=== PATIENT | female | born 1935 | race Caucasian/White ===

== ENCOUNTER → 2016-07-28 | Outpatient (REF) | payer MEDICARE ==
[2016-07-28 18:51] LABS: BASO # 0.1 K/mm3 (0.0-0.2); EOS # 0.2 K/mm3 (0.0-0.50); EOS % 3.1 % (0.0-3.0); LARGE UNSTAINED CELL # 0.2 K/mm3 (0.0-0.4); LARGE UNSTAINED CELL % 2.5 % (0.0-4.0); LYMPH # 1.5 K/mm3 (1.5-4.5); LYMPH % 23.8 % (24.0-44.0); MEAN CORPUSCULAR HEMOGLOBIN 34.2 pg (27.0-33.0); MEAN CORPUSCULAR HGB CONC 32.8 g/dl (32.0-36.5); MEAN CORPUSCULAR VOLUME 104.5 fl (80.0-96.0); MONO # 0.4 K/mm3 (0.0-0.8); NEUTROPHILS # 3.9 K/mm3 (1.8-7.7); NEUTROPHILS % 62.6 % (36.0-66.0); PLATELET COUNT, AUTOMATED 198 k/mm3 (150-450); WHITE BLOOD COUNT 6.3 K/mm3 (4.0-10.0)
[2016-07-28 19:14] LABS: ALBUMIN 3.5 GM/DL (3.2-5.2); ALBUMIN/GLOBULIN RATIO 1.06 (1.00-1.93); ALKALINE PHOSPHATASE 75 U/L (45-117); ALT/SGPT 15 U/L (12-78); ANION GAP 7 MEQ/L (8-16); AST/SGOT 14 U/L (15-37); BLOOD UREA NITROGEN 14 MG/DL (7-18); CALCIUM LEVEL 8.6 MG/DL (8.8-10.2); CARBON DIOXIDE LEVEL 29 MEQ/L (21-32); CHLORIDE LEVEL 104 MEQ/L (98-107); CHOLESTEROL LEVEL 234 MG/DL (<200); CREATININE FOR GFR 0.82 MG/DL (0.55-1.02); FREE T4 1.11 NG/DL (0.76-1.46); GLOMERULAR FILTRATION RATE > 60.0 (>32); GLUCOSE, FASTING 111 MG/DL (83-110); SODIUM LEVEL 140 MEQ/L (136-145); TOTAL PROTEIN 6.8 GM/DL (6.4-8.2); TRIGLYCERIDES LEVEL 180 MG/DL (<150)
== END ==
LOC: M SFHCCAPE 09:28
PROVIDERS: ATTEND Registered Nurse
DX: E78.5 Hyperlipidemia, unspecified (principal); E11.9 Type 2 diabetes mellitus without complications

== ENCOUNTER 2016-10-17 14:54 | Emergency (ER) | payer MEDICARE ==
[~2016-10-17] VITALS: Ht 154.9 cm; Wt 57.7 kg
[2016-10-17] MEDS ORDERED: VICO5TAB16 PO (15:24)
[2016-10-17] MEDS ORDERED: LOVE1INJ2 SC (15:24)
[2016-10-17] MEDS ORDERED: FOLB1TAB PO (15:24)
[2016-10-17] MEDS ORDERED: LATA5OPD OD (15:24)
[2016-10-17] MEDS ORDERED: blood pressure (15:24)
--- NOTE | 2016-10-17 19:50 | REPUSA ---
CLINICAL HISTORY: Trauma. TECHNIQUE: Multiple axial CT images were obtained through the brain without IV contrast material. COMMENTS: There is normal configuration of sella turcica. There are no intra or extra-axial collections. There is no mass effect or midline shift. There is no evidence of hematoma formation. No hydrocephalus is p resent. The ventricles are symmetrical. No abnormal calcifications are present. There is diffuse age-appropriate cerebellar and cerebral atrophy with proportionally dilated ventricl es and cortical sulci. There are bilateral periventricular and subcortical white matter hypolucencies compatible with chroni c microvascular disease. Otherwise, no significant focal abnormalities are seen either in the posterior fossa or supratentoria l compartment. IMPRESSION: 1. Age-appropriate cerebellar and cerebral atrophy. 2. Chronic microvascular disease. 3. No evidence of acute intracranial pathology. Thank you for your kind referral of this patient.
[2016-10-17 19:59] VITALS: BP 165/81
[2016-10-17] MEDS ORDERED: BACT800T5 PO (19:59)
[2016-10-17] MEDS ORDERED: BACTRIM 160MG/800MG DS TAB PO ONE (20:00)
== END 2016-10-17 20:16 | disposition home or self-care (01) ==
LOC: M ED 14:54
DX: N39.0 Urinary tract infection, site not specified (principal); F10.10 Alcohol abuse, uncomplicated; Z87.891 Personal history of nicotine dependence; Z79.899 Other long term (current) drug therapy

== ENCOUNTER → 2016-11-24 | Outpatient (REF) | payer MEDICARE ==
[~2016-11-24] MED LIST: BACT800T5 PO; FOLB1TAB PO; LATA5OPD OD; LOVE1INJ2 SC; VICO5TAB16 PO; blood pressure
== END ==
LOC: M SFHCCAPE 11:54
PROVIDERS: ATTEND Physician Assistant
DX: R35.0 Frequency of micturition (principal)
CPT/HCPCS: 81002; 87086; G0463

== ENCOUNTER → 2016-12-03 | Outpatient (REF) | payer MEDICARE | LOC: M SFHCCAPE 13:24 | PROVIDERS: ATTEND Physician Assistant | DX: R35.0 Frequency of micturition (principal) ==

== ENCOUNTER → 2016-12-10 | Outpatient (REF) | payer MEDICARE | LOC: M SFHCCAPE 09:29 | PROVIDERS: ATTEND Physician Assistant | DX: R39.89 Other symptoms and signs involving the genitourinary system (principal) ==

== ENCOUNTER → 2017-03-26 | Outpatient (REF) | payer MEDICARE ==
[2017-03-26 20:32] LABS: BASO # 0.1 10^3/uL (0.0-0.2); BASO % 1.9 % (0.0-1.0); EOS # 0.2 10^3/uL (0.0-0.50); EOS % 4.4 % (0.0-3.0); HEMATOCRIT 38.1 % (36.0-47.0); HEMOGLOBIN 12.6 g/dl (12.0-16.0); IMMATURE GRANULOCYTE % 0.2 % (0-0); LYMPH % 42.5 % (24.0-44.0); MEAN CORPUSCULAR HEMOGLOBIN 32.8 pg (27.0-33.0); MEAN CORPUSCULAR HGB CONC 33.1 g/dl (32.0-36.5); MEAN CORPUSCULAR VOLUME 99.2 fl (80.0-96.0); MONO # 0.4 10^3/uL (0.0-0.8); MONO % 8.8 % (0.0-5.0); NEUTROPHILS % 42.2 % (36.0-66.0); PLATELET COUNT, AUTOMATED 211 10^3/uL (150-450); RED BLOOD COUNT 3.84 10^6/uL (4.00-5.40); RED CELL DISTRIBUTION WIDTH 12.3 % (11.5-14.5); WHITE BLOOD COUNT 4.8 10^3/uL (4.0-10.0)
[2017-03-26 21:15] LABS: ALBUMIN 3.9 GM/DL (3.2-5.2); ALBUMIN/GLOBULIN RATIO 1.08 (1.00-1.93); ALKALINE PHOSPHATASE 92 U/L (45-117); ALT/SGPT 17 U/L (12-78); ANION GAP 6 MEQ/L (8-16); AST/SGOT 17 U/L (7-37); BILIRUBIN,TOTAL 0.3 MG/DL (0.2-1.0); BLOOD UREA NITROGEN 15 MG/DL (7-18); CALCIUM LEVEL 8.5 MG/DL (8.8-10.2); CARBON DIOXIDE LEVEL 30 MEQ/L (21-32); CHLORIDE LEVEL 106 MEQ/L (98-107); CHOLESTEROL LEVEL 271 MG/DL (<200); CHOLESTEROL RISK RATIO 4.754 (<5); CREATININE FOR GFR 0.82 MG/DL (0.55-1.02); GLOMERULAR FILTRATION RATE > 60.0 (>32); GLUCOSE, FASTING 107 MG/DL (83-110); HDL CHOLESTEROL 57 MG/DL (>40); NON-HDL-C 214 MG/DL; POTASSIUM SERUM 3.7 MEQ/L (3.5-5.1); SODIUM LEVEL 142 MEQ/L (136-145); TOTAL PROTEIN 7.5 GM/DL (6.4-8.2); TRIGLYCERIDES LEVEL 583 MG/DL (<150)
[2017-03-26 21:16] LABS: VITAMIN B12 LEVEL 896 PG/ML (247-911)
[2017-03-26 21:17] LABS: CREATININE, URINE 44.2 MG/DL; MAU/CREAT RATIO 72.3 MCG/MG (0.0-30.0)
[2017-03-26 21:47] LABS: ESTIMATED AVERAGE GLUCOSE 120 MG/DL (60-110); HEMOGLOBIN A1c 5.8 %
== END ==
LOC: M SFHCCAPE 09:31
DX: E78.5 Hyperlipidemia, unspecified (principal); E11.9 Type 2 diabetes mellitus without complications; E55.9 Vitamin D deficiency, unspecified; E53.8 Deficiency of other specified B group vitamins
CPT/HCPCS: 84443

== ENCOUNTER → 2017-12-23 | Outpatient (REF) | payer MEDICARE ==
[2017-12-23 16:28] LABS: BASO # 0.1 10^3/uL (0.0-0.2); BASO % 0.9 % (0.0-1.0); EOS # 0.1 10^3/uL (0.0-0.50); EOS % 1.3 % (0.0-3.0); HEMATOCRIT 40.4 % (36.0-47.0); HEMOGLOBIN 13.7 g/dl (12.0-15.5); IMMATURE GRANULOCYTE % 0.2 % (0-3.0); LYMPH % 22.4 % (24.0-44.0); MEAN CORPUSCULAR HGB CONC 33.9 g/dl (32.0-36.5); MEAN CORPUSCULAR VOLUME 97.3 fl (80.0-96.0); MONO # 0.8 10^3/uL (0.0-0.8); MONO % 8.6 % (0.0-5.0); NEUTROPHILS # 6.1 10^3/uL (1.8-7.7); NEUTROPHILS % 66.6 % (36.0-66.0); PLATELET COUNT, AUTOMATED 225 10^3/uL (150-450); RED BLOOD COUNT 4.15 10^6/uL (4.00-5.40); RED CELL DISTRIBUTION WIDTH 12.4 % (11.5-14.5); WHITE BLOOD COUNT 9.1 10^3/uL (4.0-10.0)
[2017-12-23 16:57] LABS: ESTIMATED AVERAGE GLUCOSE 134 MG/DL (60-110); HEMOGLOBIN A1c 6.3 %
[2017-12-23 17:03] LABS: ALBUMIN 3.6 GM/DL (3.2-5.2); ALBUMIN/GLOBULIN RATIO 1.06 (1.00-1.93); ALKALINE PHOSPHATASE 91 U/L (45-117); ALT/SGPT 19 U/L (12-78); ANION GAP 10 MEQ/L (8-16); AST/SGOT 19 U/L (7-37); BILIRUBIN,TOTAL 0.6 MG/DL (0.2-1.0); BLOOD UREA NITROGEN 15 MG/DL (7-18); CARBON DIOXIDE LEVEL 27 MEQ/L (21-32); CHLORIDE LEVEL 104 MEQ/L (98-107); CHOLESTEROL LEVEL 241 MG/DL (<200); CHOLESTEROL RISK RATIO 4.634 (<5); CREATININE FOR GFR 0.98 MG/DL (0.55-1.30); GLOMERULAR FILTRATION RATE 57.8 (>32); GLUCOSE, FASTING 131 MG/DL (70-100); HDL CHOLESTEROL 52 MG/DL (>40); LDL CHOLESTEROL 134 MG/DL (<100); NON-HDL-C 189 MG/DL; POTASSIUM SERUM 4.3 MEQ/L (3.5-5.1); SODIUM LEVEL 141 MEQ/L (136-145); TRIGLYCERIDES LEVEL 273 MG/DL (<150); URIC ACID 5.1 MG/DL (2.6-6.0)
== END ==
LOC: M SFHCCAPE 13:20
DX: M10.9 Gout, unspecified (principal); E78.5 Hyperlipidemia, unspecified; E11.9 Type 2 diabetes mellitus without complications
CPT/HCPCS: 84443

== ENCOUNTER → 2018-06-01 | Outpatient (REF) | payer MEDICARE ==
[~2018-06-01] MED LIST changes: +LATA0.0013 OD; -LATA5OPD OD; -VICO5TAB16 PO; +VICO5TAB17 PO
[2018-06-01 16:47] LABS: BASO # 0.1 10^3/uL (0.0-0.2); BASO % 1.3 % (0.0-1.0); EOS # 0.2 10^3/uL (0.0-0.50); EOS % 2.9 % (0.0-3.0); HEMATOCRIT 45.5 % (36.0-47.0); LYMPH # 2.1 10^3/uL (1.5-4.5); LYMPH % 30.7 % (24.0-44.0); MEAN CORPUSCULAR HEMOGLOBIN 32.6 pg (27.0-33.0); MEAN CORPUSCULAR VOLUME 98.9 fl (80.0-96.0); MONO # 0.7 10^3/uL (0.0-0.8); NEUTROPHILS # 3.8 10^3/uL (1.8-7.7); PLATELET COUNT, AUTOMATED 217 10^3/uL (150-450); WHITE BLOOD COUNT 6.9 10^3/uL (4.0-10.0)
[2018-06-01 17:21] LABS: ALBUMIN 3.8 GM/DL (3.2-5.2); BILIRUBIN,TOTAL 0.7 MG/DL (0.2-1.0); CHOLESTEROL RISK RATIO 4.327 (<5); CREATININE FOR GFR 0.96 MG/DL (0.55-1.30); GLOMERULAR FILTRATION RATE 59.1 (>32); POTASSIUM SERUM 4.2 MEQ/L (3.5-5.1); THYROID STIMULATING HORMONE 3.55 uIU/ML (0.358-3.740); TOTAL PROTEIN 7.4 GM/DL (6.4-8.2)
[2018-06-01 17:22] LABS: TOTAL 25(OH) VITAMIN D 35.7 NG/ML (30.0-100.0)
[2018-06-01 17:33] LABS: HEMOGLOBIN A1c 6.5 %
== END ==
LOC: M SFHCCAPE 09:43
PROVIDERS: ATTEND Physician Assistant
DX: E78.5 Hyperlipidemia, unspecified (principal); E11.9 Type 2 diabetes mellitus without complications; E55.9 Vitamin D deficiency, unspecified; E53.8 Deficiency of other specified B group vitamins

== ENCOUNTER → 2019-02-01 | Outpatient (REF) | payer MEDICARE ==
[2019-02-01 18:22] LABS: BASO # 0.1 10^3/uL (0.0-0.2); BASO % 1.5 % (0.0-1.0); EOS # 0.1 10^3/uL (0.0-0.5); HEMATOCRIT 52.1 % (36.0-47.0); HEMOGLOBIN 17.2 g/dl (12.0-15.5); LYMPH # 1.9 10^3/uL (1.5-5.0); LYMPH % 27.3 % (24.0-44.0); MEAN CORPUSCULAR HEMOGLOBIN 32.4 pg (27.0-33.0); MEAN CORPUSCULAR VOLUME 98.1 fl (80.0-96.0); MONO # 0.5 10^3/uL (0.0-0.8); MONO % 7.9 % (0.0-5.0); NEUTROPHILS # 4.2 10^3/uL (1.5-8.5); NEUTROPHILS % 61.2 % (36.0-66.0); PLATELET COUNT, AUTOMATED 212 10^3/uL (150-450); RED BLOOD COUNT 5.31 10^6/uL (4.00-5.40); WHITE BLOOD COUNT 6.9 10^3/uL (4.0-10.0)
[2019-02-01 18:27] LABS: ALBUMIN 3.5 GM/DL (3.2-5.2); BILIRUBIN,TOTAL 0.9 MG/DL (0.2-1.0); CALCIUM LEVEL 9.2 MG/DL (8.8-10.2); CHOLESTEROL RISK RATIO 3.761 (<5); CREATININE FOR GFR 1.03 MG/DL (0.55-1.30); GLOMERULAR FILTRATION RATE 54.3 (>32); POTASSIUM SERUM 4.3 MEQ/L (3.5-5.1); THYROID STIMULATING HORMONE 3.18 uIU/ML (0.358-3.740); TOTAL 25(OH) VITAMIN D 25.5 NG/ML (30.0-100.0); TOTAL PROTEIN 7.4 GM/DL (6.4-8.2)
[2019-02-01 18:42] LABS: HEMOGLOBIN A1c 6.6 %
== END ==
LOC: M SFHCCAPE 09:58
PROVIDERS: ATTEND Physician Assistant
DX: E78.5 Hyperlipidemia, unspecified (principal); E11.8 Type 2 diabetes mellitus with unspecified complications; E78.2 Mixed hyperlipidemia; I10 Essential (primary) hypertension; E55.9 Vitamin D deficiency, unspecified; E53.8 Deficiency of other specified B group vitamins

== ENCOUNTER → 2019-02-07 | Outpatient (REF) | payer MEDICARE ==
[2019-02-07 17:21] LABS: MALB URINE SIEMENS 55.7 MG/L; MAU/CREAT RATIO 28.4 MCG/MG (0.0-30.0)
== END ==
LOC: M SFHCCAPE 16:08
PROVIDERS: ATTEND Physician Assistant
DX: E11.8 Type 2 diabetes mellitus with unspecified complications (principal)

== ENCOUNTER → 2019-02-17 | Outpatient (REF) | payer MEDICARE ==
[2019-02-17 17:28] LABS: BASO # 0.1 10^3/uL (0.0-0.2); BASO % 1.3 % (0.0-1.0); EOS # 0.1 10^3/uL (0.0-0.5); EOS % 1.8 % (0.0-3.0); HEMATOCRIT 51.4 % (36.0-47.0); HEMOGLOBIN 16.5 g/dl (12.0-15.5); LYMPH # 1.2 10^3/uL (1.5-5.0); LYMPH % 20.3 % (24.0-44.0); MEAN CORPUSCULAR HEMOGLOBIN 32.5 pg (27.0-33.0); MEAN CORPUSCULAR HGB CONC 32.1 g/dl (32.0-36.5); MEAN CORPUSCULAR VOLUME 101.2 fl (80.0-96.0); MONO # 0.6 10^3/uL (0.0-0.8); MONO % 9.3 % (0.0-5.0); PLATELET COUNT, AUTOMATED 180 10^3/uL (150-450); RED BLOOD COUNT 5.08 10^6/uL (4.00-5.40)
[2019-02-17 17:46] LABS: ALBUMIN 3.6 GM/DL (3.2-5.2); BILIRUBIN,TOTAL 1.5 MG/DL (0.2-1.0); CALCIUM LEVEL 9.5 MG/DL (8.8-10.2); CREATININE FOR GFR 1.07 MG/DL (0.55-1.30)
== END ==
LOC: M SFHCCAPE 11:10
PROVIDERS: ATTEND Physician Assistant
DX: D75.1 Secondary polycythemia (principal); I10 Essential (primary) hypertension; R74.8 Abnormal levels of other serum enzymes

== ENCOUNTER → 2019-02-22 | Outpatient (REF) | payer MEDICARE ==
[2019-02-22 18:30] LABS: APPEARANCE, URINE CLOUDY (CLEAR); BACTERIA, URINE AUTO 2+ (NEGATIVE); BILIRUBIN, URINE AUTO NEGATIVE (NEGATIVE); BLOOD, URINE BLOOD 1+ (NEGATIVE); COLOR, URINE AMBER (YELLOW); GLUCOSE, URINE (UA) AUTO NEGATIVE (NEGATIVE); KETONE, URINE AUTO NEGATIVE (NEGATIVE); LEUKOCYTE ESTERASE, URINE AUTO 3+ (NEGATIVE); MUCUS, URINE SMALL (NEGATIVE); NITRITE, URINE AUTO NEGATIVE (NEGATIVE); PROTEIN, URINE AUTO NEGATIVE (NEGATIVE); RBC, URINE AUTO 9 /HPF (0-3); SPECIFIC GRAVITY URINE AUTO 1.013 (1.002-1.035); SQUAMOUS EPITHELIAL CELL UR AU 51 /HPF (0-6); UROBILINOGEN, URINE AUTO 0.2 mg/dL (0.0-2.0); WBC, URINE AUTO 51 /HPF (0-3)
== END ==
LOC: M SFHCCAPE 16:45
PROVIDERS: ATTEND Physician Assistant
DX: D75.1 Secondary polycythemia (principal)

== ENCOUNTER 2019-04-04 16:55 | Inpatient (IN) | payer MEDICARE ==
[~2019-04-04] VITALS: Ht 157.5 cm; Wt 68.2 kg
[2019-04-04] MEDS ORDERED: COMB0.2S OU (17:09)
[2019-04-04] MEDS ORDERED: BIMA01SOL (17:09)
[2019-04-04] MEDS ORDERED: TIMO0.5S39 OU (17:09)
[2019-04-04] MEDS ORDERED: LISI10TA4 PO (17:09)
[2019-04-04] MEDS ORDERED: CARV3.12 PO (17:09)
[2019-04-04] MEDS ORDERED: ATOR40TA75 PO (17:09)
[2019-04-04 18:03] LABS: BASO # 0.1 10^3/uL (0.0-0.2); BASO % 1.2 % (0.0-1.0); EOS # 0.1 10^3/uL (0.0-0.5); EOS % 1.2 % (0.0-3.0); HEMATOCRIT 53.2 % (36.0-47.0); HEMOGLOBIN 17.1 g/dl (12.0-15.5); LYMPH # 1.5 10^3/uL (1.5-5.0); LYMPH % 22.9 % (24.0-44.0); MEAN CORPUSCULAR HEMOGLOBIN 32.6 pg (27.0-33.0); MEAN CORPUSCULAR HGB CONC 32.1 g/dl (32.0-36.5); MEAN CORPUSCULAR VOLUME 101.3 fl (80.0-96.0); MONO # 0.5 10^3/uL (0.0-0.8); MONO % 8.4 % (0.0-5.0); NEUTROPHILS # 4.2 10^3/uL (1.5-8.5); NEUTROPHILS % 66.1 % (36.0-66.0); PLATELET COUNT, AUTOMATED 194 10^3/uL (150-450); RED BLOOD COUNT 5.25 10^6/uL (4.00-5.40); WHITE BLOOD COUNT 6.4 10^3/uL (4.0-10.0)
[2019-04-04 18:13] LABS: INR 1.01
[2019-04-04 18:14] LABS: PARTIAL THROMBOPLASTIN TIME 30.5 SECONDS (25.0-38.4)
[2019-04-04] MEDS ORDERED: ECOT81TA5 PO (18:27)
[2019-04-04 18:28] LABS: BLOOD UREA NITROGEN 13 MG/DL (7-18); CALCIUM LEVEL 9.2 MG/DL (8.8-10.2); CARBON DIOXIDE LEVEL 27 MEQ/L (21-32); CHLORIDE LEVEL 104 MEQ/L (98-107); CK-MB VALUE MASS < 1.0 NG/ML (<3.6); CPK CREATINE PHOSPHOKINASE 52 U/L (26-192); CREATININE FOR GFR 0.92 MG/DL (0.55-1.30); GLOMERULAR FILTRATION RATE > 60.0 (>32); GLUCOSE, FASTING 121 MG/DL (70-100); MB/CK RELATIVE INDEX 1.92 (< OR =4); POTASSIUM SERUM 4.5 MEQ/L (3.5-5.1); SODIUM LEVEL 139 MEQ/L (136-145); TROPONIN I < 0.02 NG/ML (< 0.10)
[2019-04-04] MEDS ORDERED: LABETALOL HCL 100 MG/20 ML VIAL IV STA (18:37)
--- NOTE | 2019-04-04 18:42 | REP ---
Portable chest, single AP view with the patient upright, 06:12 p.m.: There are no comparisons. The lung burt are clear. The cardiac size is normal. The regino, mediastinum, and skeletal structures are unremarkable. Impression: Negative portable chest. Electronically Signed by Zane Martinez MD 04/04/2019 06:33 P
[2019-04-04] MEDS ORDERED: CARVedilol 3.125 MG TAB PO ONE (19:00)
[2019-04-04] MEDS ORDERED: PATIENT COMMENT (19:58)
[2019-04-04] MEDS ORDERED: BIMA01SOL OU (19:58)
[2019-04-04] MEDS ORDERED: XALA0.007 OU (19:58)
[2019-04-04 20:06] LABS: CHOLESTEROL LEVEL 238 MG/DL (<200); CHOLESTEROL RISK RATIO 4.033 (<5); HDL CHOLESTEROL 59 MG/DL (>40); LDL CHOLESTEROL 147 MG/DL (<100); NON-HDL-C 179 MG/DL; TRIGLYCERIDES LEVEL 162 MG/DL (<150)
[2019-04-04] MEDS ORDERED: ACETAMINOPHEN TAB 650MG DOSE (2X325MG) PO PRN (20:15)
[2019-04-04] MEDS ORDERED: OXAZEPAM 10 MG CAP PO PRN (20:30)
--- NOTE | 2019-04-04 22:26 | REPVR ---
PROCEDURE INFORMATION: Exam: US Duplex Bilateral Extracranial Arteries Exam date and time: 04/04/2019 10:04 PM Age: 83 years old Clinical indication: Altered mental status/memory loss; Other: CVA TECHNIQUE: Imaging protocol: Real-time Duplex ultrasound scan of the bilateral carotid and vertebral arteries combining fernandez scale, color Doppler and spectral waveform analysis. Bilateral exam. COMPARISON: No relevant prior studies available. FINDINGS: Right common carotid artery: Unremarkable. No occlusion or stenosis. Waveforms are normal. Right internal carotid artery: Moderate atherosclerotic plaque. No occlusion or significant stenosis. Waveforms are normal. Right ICA/CCA ratio: Within normal limits. Right external carotid artery: Owzj-rs-qmnfiwex atherosclerotic narrowing at the origin. Right vertebral artery: Unremarkable. Antegrade flow Left common carotid artery: Unremarkable. No occlusion or stenosis. Waveforms are normal. Left internal carotid artery: Moderate atherosclerotic plaque. No occlusion or significant stenosis. Waveforms are normal. Left ICA/CCA ratio: Within normal limits. Left external carotid artery: [id number] atherosclerotic narrowing at the origin. Left vertebral artery: Unremarkable. Antegrade flow. IMPRESSION: 1. Bilateral moderate atherosclerotic changes in the proximal internal carotid arteries consistent with mild stenosis using velocity (SRU) criteria. 2. Hnbe-ld-gvhyushv atherosclerotic narrowing at the origin of the vertebral arteries. 3. Antegrade flow both vertebral arteries. REFERENCE: Carotid Stenosis Reference using SRU criteria: Mild: less than 50% stenosis. ICA PSV is less than 125 cm/second and plaque or intimal thickening is visible. Moderate: 50-69% stenosis. ICA PSV is 125 to 230 cm/second and plaque is visible. Severe: 70-94% stenosis. ICA PSV is more than 230 cm/second and visible plaque and lumen narrowing are seen. Near occlusion: 95-99% stenosis. ICA PSV is variable and significant plaque and luminal narrowing are seen. Occluded: 100% stenosis. No flow identified. Electronically signed by: Jaime Godfrey On 04/04/2019 22:26:22 PM
[2019-04-04 23:38] VITALS: BP 180/102
[2019-04-04] MEDS: HEPARIN SOD (PORCINE) 5000 UNITS/ML VIAL SQ SCH (23:54)
--- NOTE | 2019-04-05 01:22 | HPEPDOC ---
General Date of Admission Apr 04, 2019 at 20:15 Date of Service: Apr 04, 2019 Chief Complaint The patient is a 83-year-old female who presented to the emergency room after she was advised by neurology for MRI findings History of Present Illness Patient is an 83-year-old female with a past medical history of hypertension, dyslipidemia abdominal tumor (Resected 2 years ago) and alcohol use who presented to the emergency room at the advice of her neurologist for MRI findings. Patient is a poor historian and her daughter was present at the bedside, who has provided details to the story. Patient reports that since for the last 6 months she has been using a cane because of instability with gait. Over the last 3 months there has been worsening of her instability. Patient and daughter have noted that one week ago she was having difficulty with signing her name. She had followed up with neurology after receiving a referral and an MRI was completed that showed recent, probably subacute infarct in the right parietal lobe with areas of petechial hemorrhage, particularly along the pre-and post- central cortex. Patient was advised of the findings on Thursday and she was advised to present to the emergency room. Patient failed to present to the emergency room and instead followed up with Dr. Lisa Chaney today for an MRA and nerve conduction study. Again, she was referred to the emergency room and has presented for follow-up today. Currently, patient reports that she is feeling fine. She denies any nausea, vomiting, chest pain, shortness of breath, cough, palpitations, abdominal pain, constipation, diarrhea, urinary discomfort, fevers or chills. . She has reported a mild headache that has resolved Patient reports that her appetite has improved over the last few months and has noted a very mild weight loss of 5 pounds over 3 weeks. Home Medications Scheduled Aspirin (Ecotrin) 81 Mg Tablet., 81 MG PO DAILY, (Reported) Atorvastatin Calcium (Atorvastatin Calcium) 40 Mg Tablet, 40 MG PO DAILY, (Reported) NEW MEDICATION - HAS NOT STARTED Bimatoprost (Lumigan) 0.01% 2.5ML Drops, 1 DROP OU QHS, (Reported) Brimonidine Tartrate/Timolol (Combigan 0.2%-0.5% Eye Drops) 5 Ml Drops, 1 DROP OU BID, (Reported) Carvedilol (Carvedilol) 3.125 Mg Tablet, 3.125 MG PO BID, (Reported) Latanoprost (Xalatan) 0.005% 2.5ML Drops, 1 DROP OU QHS, (Reported) Lisinopril (Lisinopril) 10 Mg Tablet, 10 MG PO DAILY, (Reported) Timolol Maleate (Timolol Maleate) 0.5% 5ML Drop.daily, 1 DROP OU BID, (Reported) Miscellaneous Medications [Patient Comment] , (Reported) PATIENT IS UNSURE WHICH EYE DROPS SHE TAKES. SEES DR. JOE AND DR. VINSON. WILL CALL IN THE MORNING TO VERIFY WHAT SHE IS SUPPOSED TO BE TAKING Allergies Coded Allergies: No Known Allergies (Unverified , 04/04/19) Past Medical History Medical History HTN, dyslipidemia abdominal tumor (Resected 2 years ago) and alcohol use Surgical History Abdominal tumor resection approximately 2 years ago, completed in [place] was reported to be benign Dilation and curettage greater than 20 years ago Family History - Family history was reviewed is currently noncontributory to the current hospitalization Social History - Denies the use of illicit drugs; patient reports that she quit smoking 20 years ago; patient drinks alcohol approximately 2 glasses of whiskey a day - Denies recent travel or sick contacts - Lives with daughter - Occupation; 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 Review of Systems Other systems 10 point review of systems complete, all negative otherwise stated in HPI Vital Signs - Vitals: BP 160/90, HR 78, RR 19, Sat 94%RA, Temp 96.3F - General: Lying in bed, No acute distress, Speaking in full sentences, AAOx3 - HEENT: NC, AT, PERRLA, EOMI - CVS: RRR, +S1S2 - Lungs: Fair air entry bilaterally, No appreciable wheezing / rales / rhonchi - Abdomen: Soft, Non-distended, Non-tender - Extremities: No lower extremity edema, No calf tenderness - Neuro: 5/5 strength at lower extremities bilaterally, 4/5 strength at RUE, 5/5 strength at LUE - Skin: No visible rashes Laboratory Data Labs 24H Laboratory Tests 2 04/04/19 17:37: Immature Granulocyte % (Auto) 0.2, Neutrophils (%) (Auto) 66.1H, Lymphocytes (%) (Auto) 22.9L, Monocytes (%) (Auto) 8.4H, Eosinophils (%) (Auto) 1.2, Basophils (%) (Auto) 1.2H, Neutrophils # (Auto) 4.2, Lymphocytes # (Auto) 1.5, Monocytes # (Auto) 0.5, Eosinophils # (Auto) 0.1, Basophils # (Auto) 0.1, Nucleated Red Blood Cells % (auto) 0.0, Prothrombin Time 13.0, Prothromb Time International Ratio 1.01, Activated Partial Thromboplast Time 30.5, Anion Gap 8, Glomerular Filtration Rate > 60.0, Calcium Level 9.2, Total Creatine Kinase 52, Creatine Kinase MB < 1.0, Creatine Kinase MB Relative Index 1.92, Troponin I < 0.02, Triglycerides Level 162H, Total Cholesterol 238H, LDL Cholesterol 147H, Non-HDL Cholesterol (LDL + VLDL) 179, Total HDL Cholesterol 59, Cholesterol/HDL Ratio 4.033 CBC/BMP Laboratory Tests 04/04/19 17:37 Plan / VTE VTE Prophylaxis Ordered?: Yes Plan Plan Subacute stroke - right parietal lobe with areas of petechial hemorrhage, particularly along the pre-and post-central cortex - Patient has followed up with neurology as an outpatient - MRI findings from 04/01 are present in chart; - MRA findings from04/04 are present in chart; mild apparent segmental stenosi sproximal vertebral arteries - Will get ECHO, Duplex US of carotids, c/w Telemetry monitoring - Will get PT and OT on board - Case is been discussed with neurology; at this point patient needs to complete the workup stated above; can safely continue with aspirin and heparin for DVT ppx at this time - Anticipate likely discharge tomorrow morning - Will continue with aspirin 81 and atorvastatin HTN - Blood pressure is moderately controlled - Will resume home medications DLP - c/w Atorvastatin Abdominal tumor - Resected 2 years ago in [place] - Patient has reported that this was benign Alcohol use - Patient has reported significant consumption of alcohol over several years at approximately 2 glasses of whiskey per day - Patient denies any prior histories of alcohol withdrawal - Will continue with CPAP protocol - Continue with thiamine, multivitamins and folate - Will start Serax when necessary DVT prophylaxis - Will start Heparin SQ YOSELIN GUEVARA MD Apr 05, 2019 01:22
[2019-04-05 04:00] VITALS: BP 130/80
[2019-04-05 05:26] LABS: BASO # 0.1 10^3/uL (0.0-0.2); BASO % 0.9 % (0.0-1.0); EOS # 0.1 10^3/uL (0.0-0.5); HEMATOCRIT 46.8 % (36.0-47.0); HEMOGLOBIN 15.1 g/dl (12.0-15.5); LYMPH % 30.7 % (24.0-44.0); MEAN CORPUSCULAR HEMOGLOBIN 32.9 pg (27.0-33.0); MEAN CORPUSCULAR HGB CONC 32.3 g/dl (32.0-36.5); MONO # 0.7 10^3/uL (0.0-0.8); MONO % 9.9 % (0.0-5.0); NEUTROPHILS # 3.7 10^3/uL (1.5-8.5); PLATELET COUNT, AUTOMATED 182 10^3/uL (150-450); RED BLOOD COUNT 4.59 10^6/uL (4.00-5.40); WHITE BLOOD COUNT 6.6 10^3/uL (4.0-10.0)
[2019-04-05] MEDS: HEPARIN SOD (PORCINE) 5000 UNITS/ML VIAL SQ SCH ×2 (05:59→13:47)
[2019-04-05 06:00] LABS: ALBUMIN 2.8 GM/DL (3.2-5.2); ALT/SGPT 9 U/L (12-78); BILIRUBIN,TOTAL 0.7 MG/DL (0.2-1.0); BLOOD UREA NITROGEN 17 MG/DL (7-18); CALCIUM LEVEL 8.3 MG/DL (8.8-10.2); CARBON DIOXIDE LEVEL 26 MEQ/L (21-32); CHLORIDE LEVEL 109 MEQ/L (98-107); CREATININE FOR GFR 0.88 MG/DL (0.55-1.30); GLOMERULAR FILTRATION RATE > 60.0 (>32); GLUCOSE, FASTING 109 MG/DL (70-100); POTASSIUM SERUM 3.6 MEQ/L (3.5-5.1); SODIUM LEVEL 141 MEQ/L (136-145); TOTAL PROTEIN 6.2 GM/DL (6.4-8.2)
[2019-04-05 08:00] VITALS: BP 165/74
[2019-04-05 08:03] VITALS: BP 165/74
[2019-04-05 08:41] VITALS: BP 165/74
[2019-04-05] MEDS ORDERED: ATORVASTATIN 20 MG TAB PO SCH (09:00)
[2019-04-05] MEDS ORDERED: ASPIRIN 81 MG ENTERIC TAB PO SCH (09:00)
[2019-04-05] MEDS ORDERED: FOLIC ACID 1 MG TAB PO SCH (09:00)
[2019-04-05] MEDS ORDERED: lisinopriL 10 MG TAB PO SCH (09:00)
[2019-04-05] MEDS ORDERED: THIAMINE 100 MG TAB PO SCH (09:00)
[2019-04-05] MEDS ORDERED: TIMOLOL MALEATE 0.5% OPHTH SOLN 5 ML OU SCH (09:00)
[2019-04-05] MEDS ORDERED: CARVedilol 3.125 MG TAB PO SCH (09:00)
[2019-04-05] MEDS ORDERED: MULTIVITAMINS/MINERALS THERAP 1 TAB PO SCH (09:00)
[2019-04-05 12:00] VITALS: BP 142/74
--- NOTE | 2019-04-05 18:01 | DS.PDOC ---
Discharge Summary General Date of Admission Apr 04, 2019 at 20:15 Date of Discharge 04/05/2019 Attending Physician: BRANDY WALLACE MD Discharge Summary PROCEDURES PERFORMED DURING STAY: Carotid Doppler ultrasound, echocardiogram ADMITTING DIAGNOSES: 1. Abnormal MRI finding DISCHARGE DIAGNOSES: 1. right parietal lobe with areas of petechial hemorrhage, particularly along the pre-and post-central cortex COMPLICATIONS/CHIEF COMPLAINT: CVA. HISTORY OF PRESENT ILLNESS/HOSPITAL COURSE: Patient is an 83-year-old female with a past medical history of hypertension, dyslipidemia abdominal tumor (Resected 2 years ago) and alcohol use who presented to the emergency room at the advice of her neurologist for MRI findings. Patient was advised of the findings on Thursday and she was advised to present to the emergency room. Patient failed to present to the emergency room and instead followed up with Dr. Lisa Chaney today for an MRA and nerve conduction study. Again, she was referred to the emergency room and has presented for follow-up today. As per the request of neurologist. Patient was admitted, monitored overnight with telemetry, echocardiogram was performed, carotid ultrasound of the carotids obtained. Patient's aspirin was discontinued prior to discharge. Patient was discharged in stable condition with instructions to follow-up with neurology. PT also evaluated patient and cleared patient for safe discharge. She was advised to use rolling walker to walk. DISCHARGE MEDICATIONS: Please see below. ALLERGIES: Please see below. PHYSICAL EXAMINATION ON DISCHARGE: VITAL SIGNS: Please see below. VITALS: See Below GENERAL APPEARANCE: Alert no acute distress. SKIN: Warm, well perfused. LUNGS: Clear to auscultation bilaterally. HEART: Normal S1, S2. No murmurs, no rubs, no gallops ABDOMEN: Soft. No masses. Bowel sounds are present. EXTREMITIES: Moves all extremities equally. No gross deformities. PULSES: 2+ upper and lower extremity . NEURO: Abnormal finger to nose finger exam on left side LABORATORY DATA: Please see below. IMAGING: Vascular US: Carotid Stenosis Reference using SRU criteria: Mild: less than 50% stenosis. ICA PSV is less than 125 cm/second and plaque or intimal thickening is visible. Moderate: 50-69% stenosis. ICA PSV is 125 to 230 cm/second and plaque is visible. Severe: 70-94% stenosis. ICA PSV is more than 230 cm/second and visible plaque and lumen narrowing are seen. Near occlusion: 95-99% stenosis. ICA PSV is variable and significant plaque and luminal narrowing are seen. Occluded: 100% stenosis. No flow identified. Chest Xray: Impression: Negative portable chest. PROGNOSIS: Stable ACTIVITY: As tolerated. Use rolling walker to ambulate DIET: Regular DISCHARGE PLAN: To Home with Neurology follow up DISPOSITION: Stable DISCHARGE INSTRUCTIONS: 1. Use Rolling walker to ambulate ITEMS TO FOLLOWUP ON ON OUTPATIENT: 1. Echo Results 2. Duplex US of Carotid Results DISCHARGE CONDITION: Stable TIME SPENT ON DISCHARGE: Greater than 35 minutes. Vital Signs/I&Os Vital Signs Date Time Temp Pulse Resp B/P (MAP) Pulse Ox O2 Delivery O2 Flow Rate FiO2 04/05/19 12:00 97.2 79 18 142/74 (96) 98 Room Air I&O- Last 24 Hours up to 6 AM 04/05/19 06:00 Intake Total 60 ml Output Total 0 ml Balance 60 ml Laboratory Data Labs 24H Laboratory Tests 2 04/05/19 04:55: Immature Granulocyte % (Auto) 0.5, Neutrophils (%) (Auto) 56.0, Lymphocytes (%) (Auto) 30.7, Monocytes (%) (Auto) 9.9H, Eosinophils (%) (Auto) 2.0, Basophils (%) (Auto) 0.9, Neutrophils # (Auto) 3.7, Lymphocytes # (Auto) 2.0, Monocytes # (Auto) 0.7, Eosinophils # (Auto) 0.1, Basophils # (Auto) 0.1, Nucleated Red Blood Cells % (auto) 0.0, Anion Gap 6L, Glomerular Filtration Rate > 60.0, Vazquez cium Level 8.3L, Magnesium Level 2.0, Total Bilirubin 0.7, Aspartate Amino Transf (AST/SGOT) 10, Alanine Aminotransferase (ALT/SGPT) 9L, Alkaline Phosphatase 81, Total Protein 6.2L, Albumin 2.8L, Albumin/Globulin Ratio 0.82L CBC/BMP Laboratory Tests 04/05/19 04:55 Discharge Medications Scheduled Atorvastatin Calcium (Atorvastatin Calcium) 40 Mg Tablet, 40 MG PO DAILY, (Reported) NEW MEDICATION - HAS NOT STARTED Bimatoprost (Lumigan) 0.01% 2.5ML Drops, 1 DROP OU QHS, (Reported) Brimonidine Tartrate/Timolol (Combigan 0.2%-0.5% Eye Drops) 5 Ml Drops, 1 DROP OU BID, (Reported) WAITING FOR Apr APPT FOR RENEWAL. Carvedilol (Carvedilol) 3.125 Mg Tablet, 3.125 MG PO BID, (Reported) Lisinopril (Lisinopril) 10 Mg Tablet, 10 MG PO DAILY, (Reported) Timolol Maleate (Timolol Maleate) 0.5% 5ML Drop.daily, 1 DROP OU BID, (Reported) RECEIVED FROM UNTIL NEXT APPT FOR Apr, REPLACING COMBIGAN CURRENTLY Allergies Coded Allergies: No Known Allergies (Unverified , 04/04/19) GME ATTESTATION GME ATTESTATION My faculty preceptor for this patient encounter was physically present during the encounter and was fully available. All aspects of the patient interview, examination, medical decision making process, and medical care plan development were reviewed and approved by the faculty preceptor. The faculty preceptor is aware and concurs with the plan as stated in the body of this note and will attest to such by his/her cosignature. ATTENDING NOTE I examined the patient, reviewed and edited the note and agree with the findings as documented by the resident MD. ISAURO CASON DO Apr 05, 2019 18:01 BRANDY WALLACE MD Apr 06, 2019 20:25
--- NOTE | 2019-04-05 19:37 | ECHO ---
DATE OF PROCEDURE: 04/05/2019 REFERRING PHYSICIAN: Dr. Sandip Jacinto INDICATION: Cerebrovascular accident. Height 158 cm, weight 63 kg. DIMENSIONS: IVS: 1.2 LV: 3.3 LVPW: 1.1 LA: 3.9 Aorta: 2.9 Mitral E wave velocity: 86 A wave: 131 E prime septal: 3.9 E prime lateral: 4.9 FINDINGS: The study is of fair technical quality with limited visualization. The patient is in sinus rhythm. Left ventricle is normal size and overall has likely normal systolic function. I certainly cannot rule out subtle wall motion abnormalities. Overall left ventricular ejection fraction (LVEF) estimated at 65-70%. Right ventricle is also normal size and systolic function. Both atria appear at least mildly enlarged. Aortic valve is sclerotic but mobility of leaflets seems grossly preserved. There are degenerative abnormalities of mitral valve with prominent thickening of mitral leaflets and mitral annular calcifications. Tricuspid valve appears normal. Pulmonic valve was not seen. No pericardial effusion but pericardial fat pad is noted. Inferior vena cava is of relatively small size. Aortic root is normal. Aortic arch and abdominal aorta were not seen. Doppler interrogation of aortic valve reveals no significant stenosis or insufficiency. There is mild mitral insufficiency but no significant stenosis. Tricuspid valve is functionally competent. Mitral inflow pattern and tissue Doppler imaging of mitral annulus revealed grade 1 diastolic dysfunction. CONCLUSIONS: 1. Study is of fair technical quality, the patient is in sinus rhythm. 2. Normal left ventricular (LV) size with borderline left ventricular hypertrophy (LVH) and grossly preserved LV systolic function. Grade 1 diastolic dysfunction. 3. Aortic sclerosis without significant stenosis or insufficiency. 4. Mild mitral insufficiency. 5. Unable to estimate central venous pressure and pulmonary artery pressure. COMMENT: Subacute bacterial endocarditis (SBE) prophylaxis is not recommended.
--- NOTE | 2019-04-05 20:39 | ECGEPIP ---
[facility] - ED Test Date: 2019-04-04 Pat Name: YAMILEX SALINAS Department: Room: - Gender: Female [employer] E[employer]: darrel : 1935 Requested By: Main Donato Order Number: [id number] Reading MD: Main Vargas Measurements Intervals [place] Rate: 82 P: 0 NV: 151 QRS: -18 QRSD: 66 T: 3 QT: 377 QTc: 443 Interpretive Statements SINUS RHYTHM WITH OCCASIONAL VENTRICULAR PREMATURE COMPLEXES MODERATE VOLTAGE CRITERIA FOR LVH, CONSIDER NORMAL VARIANT NO PRIORS FOR COMPARISON Electronically Signed on 04-05-2019 20:39:24 EST by Main Vargas
[2019-04-05] MEDS ORDERED: LATANOPROST 0.005% OPHTH SOLN 2.5 ML OU SCH (21:00)
== END 2019-04-05 18:05 | disposition home health service (06) | DRG 66 ==
LOC: M ED 16:55 → M ED INP 20:15 → ENRESERV 21:00 → M PCU 23:38
PROVIDERS: ADMIT Internal Medicine; ATTEND Internal Medicine
DX: I61.9 Nontraumatic intracerebral hemorrhage, unspecified (principal); I10 Essential (primary) hypertension; E78.5 Hyperlipidemia, unspecified; F10.10 Alcohol abuse, uncomplicated; Z79.899 Other long term (current) drug therapy

== ENCOUNTER 2019-09-10 12:16 | Emergency (ER) | payer MEDICARE ==
[~2019-09-10] VITALS: Ht 154.9 cm; Wt 59.1 kg
[~2019-09-10 12:16] MED LIST changes: +ATOR40TA75 PO; +BIMA01SOL; +BIMA01SOL OU; +CARV3.12 PO; +COMB0.2S OU; +ECOT81TA5 PO; +LISI10TA4 PO; +PATIENT COMMENT; +TIMO0.5S39 OU; +XALA0.007 OU
[2019-09-10] MEDS ORDERED: ASPI325T57 PO (12:29)
[2019-09-10] MEDS ORDERED: ASPI81TA26 (12:29)
[2019-09-10] MEDS ORDERED: diazePAM 10MG/2ML SYRINGE (J3360 PER 5MG) IV ONE (12:30)
[2019-09-10] MEDS ORDERED: KETOROLAC 30 MG/ML 1ML VIAL IV ONE (12:30)
[2019-09-10] MEDS ORDERED: cloNIDine 0.1 MG TAB PO ONE (12:45)
--- NOTE | 2019-09-10 13:17 | REP ---
Clinical: Fall. Pain. Technique: Axial noncontrast images through the lumbosacral spine with coronal and sagittal re-formations. Findings: Generalized age-related osteopenia and moderate to advanced multilevel degenerative disc osteophyte complexes are appreciated throughout the visualized lower thoracic and lumbosacral spine. Alignment and lordosis maintained without definite acute fracture / compression injury or subluxation. Concavity along the superior endplate of L3 likely represents chronic changes and Schmorl's node and less likely acute injury. Spinal canal appears patent although small to moderate posterior multilevel disc bulges primarily noted at L5-L1 and L4-5 are suggested. Paravertebral soft tissues are grossly normal. Extensive atherosclerotic disease to the aorta and vasculature noted. Impression: 1. Advanced osteopenia and moderate to advanced multilevel degenerative spondylosis as described above. 2. Concavity along the superior endplate of L3 likely chronic/Schmorl's node. Electronically Signed by Ramon Chapman MD 09/10/2019 01:08 P
[2019-09-10 13:45] VITALS: BP 157/76
[2019-09-10] MEDS ORDERED: NAPR-837 PO (14:07)
== END 2019-09-10 15:37 | disposition home or self-care (01) ==
LOC: M ED 12:16 → EDBD 12:16 → M ED 15:37
DX: M47.817 Spondylosis without myelopathy or radiculopathy, lumbosacral region (principal); M85.80 Other specified disorders of bone density and structure, unspecified site; G89.29 Other chronic pain; M54.5 Low back pain; I11.9 Hypertensive heart disease without heart failure; Z79.82 Long term (current) use of aspirin; Z87.891 Personal history of nicotine dependence
CPT/HCPCS: 72131; 96374; 96375; 99284; J1885; J3360

== ENCOUNTER 2019-09-21 07:58 | Emergency (ER) | payer MEDICARE ==
[~2019-09-21] VITALS: Ht 157.5 cm; Wt 61.4 kg
[~2019-09-21 07:58] MED LIST changes: +ASPI325T57 PO; +ASPI81TA26; +NAPR-837 PO
[2019-09-21] MEDS ORDERED: ISTA0.5S OP (08:13)
[2019-09-21] MEDS ORDERED: COMB0.2S OP (08:13)
[2019-09-21] MEDS ORDERED: NORCO, ANEXSIA 5/325MG TABLET (HYDROcodone/ACETAMINOPHEN) PO ONE (08:15)
--- NOTE | 2019-09-21 09:21 | REP ---
CT lumbar spine: 09/21/2019. Indication: Lumbar spine trauma. Technique: Unenhanced axial CT images of the lumbar spine were performed with coronal and sagittal reconstructions provided. Comparison: 09/10/2019. Findings: There is no acute fracture, subluxation or dislocation. There is no evidence of hemorrhage or additional acute post traumatic sequelae within the spinal canal. Please see recent report for additional details. Impression: No acute fracture or additional acute osseous injuries of the lumbar spine. Electronically Signed by Young Ingram DO 09/21/2019 09:13 A
[2019-09-21 09:30] VITALS: BP 124/61
[2019-09-21] MEDS ORDERED: NORC1TAB7 PO (09:46)
== END 2019-09-21 10:41 | disposition home or self-care (01) ==
LOC: M ED 07:58
DX: M54.5 Low back pain (principal); W06.XXXA Fall from bed, initial encounter; W23.1XXA Caught, crushed, jammed, or pinched between stationary objects, initial encounter; Y92.009 Unspecified place in unspecified non-institutional (private) residence as the place of occurrence of the external cause; Y93.9 Activity, unspecified; Y99.9 Unspecified external cause status; E11.9 Type 2 diabetes mellitus without complications; E78.49 Other hyperlipidemia; F41.9 Anxiety disorder, unspecified; H26.9 Unspecified cataract; I10 Essential (primary) hypertension; N83.8 Other noninflammatory disorders of ovary, fallopian tube and broad ligament; Z79.82 Long term (current) use of aspirin; Z79.899 Other long term (current) drug therapy; Z81.1 Family history of alcohol abuse and dependence; Z87.891 Personal history of nicotine dependence

== ENCOUNTER 2019-10-03 10:13 | Emergency (ER) | payer MEDICARE ==
[~2019-10-03] VITALS: Ht 157.5 cm; Wt 61.4 kg
[~2019-10-03 10:13] MED LIST changes: +COMB0.2S OP; +ISTA0.5S OP; +NORC1TAB7 PO
[2019-10-03] MEDS ORDERED: lisinopriL 10 MG TAB PO ONE (12:00)
[2019-10-03 12:01] LABS: HEMOGLOBIN 15.1 g/dl (12.0-15.5); MEAN CORPUSCULAR HGB CONC 33.6 g/dl (32.0-36.5); MEAN CORPUSCULAR VOLUME 98.5 fl (80.0-96.0); PLATELET COUNT, AUTOMATED 252 10^3/uL (150-450); RED BLOOD COUNT 4.57 10^6/uL (4.00-5.40); WHITE BLOOD COUNT 10.9 10^3/uL (4.0-10.0)
--- NOTE | 2019-10-03 12:10 | REP ---
Clinical: Trauma. Fall. Comparison: 10/17/2016 Findings: Age-related atrophy and microvascular ischemic changes are appreciated. The ventricles and sulci are symmetric. High-white differentiation is maintained. There is no evidence for acute intracranial hemorrhage, mass/mass effect, pathology or infarction. No extra-axial fluid collection. Calvarium is intact. Paranasal sinuses and mastoid air cells are clear. Impression: Age related atrophy and microvascular ischemic changes. No acute intracranial hemorrhage, infarction, or mass/mass effect. Electronically Signed by Ramon Chapman MD 10/03/2019 12:01 P
--- NOTE | 2019-10-03 12:11 | REP ---
CT study of the cervical spine without contrast: History: Injury in a fall. No comparison study. Technique: Helical scanning is acquired and overlapping 2 mm high resolution axial images were generated and reviewed at bone and soft tissue window settings. Coronal and sagittal multiplanar re-formations images are generated. CT findings: There is no evidence of cervical spine element fracture. No skull base fracture is seen. Cervical vertebral body heights are preserved. Alignment is normal. Facet joints are normally aligned bilaterally at each cervical level on multiplanar re-formations images. There is no evidence of intraspinal or paraspinal hematoma. No extra vertebral abnormality is seen. There are degenerative spondylosis changes with discogenic spurring anteriorly in the lower cervical and upper thoracic spine. There is osteoarthritic facet hypertrophy in the mid cervical spine bilaterally. There is extensive vascular calcification in the carotid artery bifurcations bilaterally. Impression: Degenerative spondylosis changes. Prominent vascular calcification. Otherwise negative CT study of the cervical spine without contrast. No fracture seen. Electronically Signed by Channing Angela MD 10/03/2019 12:03 P
[2019-10-03 12:25] LABS: BLOOD UREA NITROGEN 11 MG/DL (7-18); CALCIUM LEVEL 9.1 MG/DL (8.8-10.2); CARBON DIOXIDE LEVEL 29 MEQ/L (21-32); CHLORIDE LEVEL 106 MEQ/L (98-107); CREATININE FOR GFR 0.94 MG/DL (0.55-1.30); ETHYL ALCOHOL (ETHANOL) < 0.003 % (0.000-0.010); GLOMERULAR FILTRATION RATE > 60.0 (>32); GLUCOSE, FASTING 121 MG/DL (70-100); POTASSIUM SERUM 4.2 MEQ/L (3.5-5.1); SODIUM LEVEL 140 MEQ/L (136-145)
[2019-10-03 12:35] VITALS: BP 225/98
--- NOTE | 2019-10-03 12:40 | REP ---
Clinical: Trauma. Fall. Technique: AP, lateral, bilateral oblique and coned-down views of the lumbosacral spine. Findings: Age-related osteopenia and multilevel degenerative changes are appreciated. No obvious acute fracture / compression injury or subluxation identified. Impression: Significantly limited by osteopenia and advanced multilevel degenerative changes. No definite acute fracture / compression injury or subluxation. However, subtle injury involving L1 cannot be excluded. Electronically Signed by Ramon Chapman MD 10/03/2019 12:31 P
--- NOTE | 2019-10-03 13:44 | REPVR ---
PROCEDURE INFORMATION: Exam: CT Lumbar Spine Without Contrast Exam date and time: 10/03/2019 1:15 PM Age: 83 years old Clinical indication: Injury or trauma; Fall; Initial encounter; Blunt trauma (contusions or hematomas); Additional info: ? L1 FX on xray TECHNIQUE: Imaging protocol: Computed tomography images of the lumbar spine without contrast. Radiation optimization: All CT scans at this facility use at least one of these dose optimization techniques: automated exposure control; mA and/or kV adjustment per patient size (includes targeted exams where dose is matched to clinical indication); or iterative reconstruction. COMPARISON: CT Spine, lumbar w/o contrast 09/21/2019 8:33 AM FINDINGS: Vertebrae: There is marked diffuse osteopenia. The superior aspect of the L1 vertebral body is not visualized on the current study. Repeat examination may be considered. Stable chronic superior endplate compression fracture/Schmorl's node along the superior endplate of L3 vertebral body. No significant retropulsion is seen. Otherwise,the remainder of the lumbar vertebral bodies are normal in height and alignment.No acute fracture or dislocation is seen. Discs/Spinal canal/Neural foramina: There are stable multilevel degenerative changes including degenerative disc disease, spondylosis and facet degenerative changes. Epidural space: There is no evidence of epidural masses or hemorrhage. Vasculature: The aorta demonstrates severe atherosclerotic calcification and ectasia. Stable unruptured infrarenal abdominal aortic aneurysm measuring 3 cm in maximum diameter. Soft tissues: There are no soft tissue masses or fluid collections. The prevertebral soft tissues appear normal. IMPRESSION: 1. There is marked diffuse osteopenia. 2. The superior aspect of the L1 vertebral body is not visualized on the current study. Repeat examination may be considered. 3. Stable chronic superior endplate compression fracture/Schmorl's node along the superior endplate of L3 vertebral body. No significant retropulsion is seen. Otherwise,the remainder of the lumbar vertebral bodies are normal in height and alignment.No acute fracture or dislocation is seen. 4. Stable unruptured infrarenal abdominal aortic aneurysm measuring 3 cm in maximum diameter. Electronically signed by: Cedric Lam On 10/03/2019 13:43:29 PM
[2019-10-03] MEDS ORDERED: NORCO, ANEXSIA 5/325MG TABLET (HYDROcodone/ACETAMINOPHEN) PO ONE (15:15)
[2019-10-03 17:54] VITALS: BP 202/95
== END 2019-10-03 17:57 | disposition home or self-care (01) ==
LOC: M ED 10:13 → EDBD 10:13 → M ED 17:57
DX: S32.010A Wedge compression fracture of first lumbar vertebra, initial encounter for closed fracture (principal); W01.0XXA Fall on same level from slipping, tripping and stumbling without subsequent striking against object, initial encounter; Y92.009 Unspecified place in unspecified non-institutional (private) residence as the place of occurrence of the external cause; Y93.9 Activity, unspecified; M51.37 Other intervertebral disc degeneration, lumbosacral region; M47.813 Spondylosis without myelopathy or radiculopathy, cervicothoracic region; I10 Essential (primary) hypertension; E78.5 Hyperlipidemia, unspecified; Z79.82 Long term (current) use of aspirin; Z79.899 Other long term (current) drug therapy
CPT/HCPCS: 36415; 70450; 72110; 72125; 72131; 80048; 81001; 85027; 99284; G0480

== ENCOUNTER → 2020-08-21 | Outpatient (REF) | payer MEDICARE ==
[~2020-08-21] MED LIST changes: +LISI10TA22 PO; -LISI10TA4 PO
[2020-08-21 10:57] LABS: HEMATOCRIT 36.6 % (36.0-47.0); HEMOGLOBIN 12.3 g/dl (12.0-15.5); MEAN CORPUSCULAR HEMOGLOBIN 33.1 pg (27.0-33.0); MEAN CORPUSCULAR HGB CONC 33.6 g/dl (32.0-36.5); MEAN CORPUSCULAR VOLUME 98.4 fl (80.0-96.0); PLATELET COUNT, AUTOMATED 365 10^3/uL (150-450); RED BLOOD COUNT 3.72 10^6/uL (4.00-5.40)
[2020-08-21 12:10] LABS: CALCIUM LEVEL 8.9 MG/DL (8.8-10.2); CREATININE FOR GFR 1.03 MG/DL (0.55-1.30); GLOMERULAR FILTRATION RATE 54.2 (>32); POTASSIUM SERUM 4.3 MEQ/L (3.5-5.1)
== END ==
PROVIDERS: ATTEND Physician Assistant
DX: I10 Essential (primary) hypertension (principal)

== ENCOUNTER → 2020-10-08 | Outpatient (REF) | payer MEDICARE ==
[2020-10-08 11:25] LABS: HEMATOCRIT 32.8 % (36.0-47.0); HEMOGLOBIN 10.6 g/dl (12.0-15.5); MEAN CORPUSCULAR HEMOGLOBIN 31.1 pg (27.0-33.0); MEAN CORPUSCULAR HGB CONC 32.3 g/dl (32.0-36.5); MEAN CORPUSCULAR VOLUME 96.2 fl (80.0-96.0); PLATELET COUNT, AUTOMATED 334 10^3/uL (150-450); RED BLOOD COUNT 3.41 10^6/uL (4.00-5.40); WHITE BLOOD COUNT 9.5 10^3/uL (4.0-10.0)
[2020-10-08 11:49] LABS: BLOOD UREA NITROGEN 17 MG/DL (7-18); CALCIUM LEVEL 8.8 MG/DL (8.8-10.2); CARBON DIOXIDE LEVEL 27 MEQ/L (21-32); CHLORIDE LEVEL 104 MEQ/L (98-107); CREATININE FOR GFR 0.72 MG/DL (0.55-1.30); GLOMERULAR FILTRATION RATE > 60.0 (>32); GLUCOSE, FASTING 137 MG/DL (70-100); POTASSIUM SERUM 4.3 MEQ/L (3.5-5.1); SODIUM LEVEL 138 MEQ/L (136-145)
== END ==
PROVIDERS: ATTEND Internal Medicine
DX: I10 Essential (primary) hypertension (principal)

== ENCOUNTER 2020-11-06 09:56 | Inpatient (IN) | payer MEDICARE ==
[~2020-11-06] VITALS: Ht 157.5 cm; Wt 56.3 kg
[2020-11-06 10:53] LABS: BASO # 0.1 10^3/uL (0.0-0.2); EOS # 0.2 10^3/uL (0.0-0.5); EOS % 1.7 % (0.0-3.0); HEMOGLOBIN 11.6 g/dl (12.0-15.5); LYMPH # 1.3 10^3/uL (1.5-5.0); LYMPH % 12.7 % (24.0-44.0); MEAN CORPUSCULAR HEMOGLOBIN 30.8 pg (27.0-33.0); MEAN CORPUSCULAR HGB CONC 32.2 g/dl (32.0-36.5); MEAN CORPUSCULAR VOLUME 95.5 fl (80.0-96.0); MONO # 0.7 10^3/uL (0.0-0.8); MONO % 7.2 % (2.0-8.0); NEUTROPHILS # 7.7 10^3/uL (1.5-8.5); NEUTROPHILS % 76.9 % (36.0-66.0); PLATELET COUNT, AUTOMATED 329 10^3/uL (150-450); RED BLOOD COUNT 3.77 10^6/uL (4.00-5.40); WHITE BLOOD COUNT 10.1 10^3/uL (4.0-10.0)
--- NOTE | 2020-11-06 11:10 | REP ---
INDICATION: Syncope/near-syncope COMPARISON: 04/04/2019 TECHNIQUE: Portable AP view of the chest FINDINGS: The mediastinum and cardiac silhouette are stable and within normal limits for portable technique. The lung burt are clear without acute consolidation, effusion, or pneumothorax. Skeletal structures are intact. IMPRESSION: No acute cardiopulmonary process appreciated. <Electronically signed by Ramon Chapman > 11/06/20 1107
[2020-11-06 11:16] LABS: BLOOD UREA NITROGEN 24 MG/DL (7-18); CALCIUM LEVEL 8.8 MG/DL (8.8-10.2); CARBON DIOXIDE LEVEL 31 MEQ/L (21-32); CHLORIDE LEVEL 105 MEQ/L (98-107); CK-MB VALUE MASS < 1.0 NG/ML (<3.6); CPK CREATINE PHOSPHOKINASE 30 U/L (26-192); GLOMERULAR FILTRATION RATE 56.1 (>32); GLUCOSE, FASTING 184 MG/DL (70-100); MAGNESIUM LEVEL 2.3 MG/DL (1.8-2.4); MB/CK RELATIVE INDEX 3.33 (< OR =4); POTASSIUM SERUM 4.4 MEQ/L (3.5-5.1); SODIUM LEVEL 138 MEQ/L (136-145); TROPONIN I < 0.02 NG/ML (< 0.10)
[2020-11-06] MEDS: NS 1,000 ML IV SCH ×2 (11:51→21:23)
[2020-11-06] MEDS ORDERED: CYAN100050 PO (11:54)
[2020-11-06] MEDS ORDERED: ATOR40TA75 PO (11:54)
[2020-11-06] MEDS ORDERED: MYLASSUD PO (11:54)
[2020-11-06] MEDS ORDERED: BIMA01SOL OD (11:54)
[2020-11-06] MEDS ORDERED: AMLO1TAB24 PO (11:54)
[2020-11-06] MEDS ORDERED: DICL20GE TOP (11:54)
[2020-11-06] MEDS ORDERED: MEMA10TA19 PO (11:54)
[2020-11-06] MEDS ORDERED: B-1100TA2 PO (11:54)
[2020-11-06] MEDS ORDERED: ACET650T61 PO (11:54)
[2020-11-06] MEDS ORDERED: ASPI-161 PO (11:54)
[2020-11-06] MEDS ORDERED: LISI20TA33 PO (11:54)
[2020-11-06] MEDS ORDERED: [UNRECOGNIZED DRUG - CODE] PO (11:54)
[2020-11-06] MEDS ORDERED: FOLI1TAB11 PO (11:54)
[2020-11-06] MEDS ORDERED: [UNRECOGNIZED DRUG - CODE] PO (11:54)
[2020-11-06] MEDS ORDERED: MILKSUS3 PO (11:54)
[2020-11-06] MEDS ORDERED: C 50TAB PO (11:54)
[2020-11-06] MEDS ORDERED: ENEMENE PR (11:54)
[2020-11-06] MEDS ORDERED: COLA100C5 PO (11:54)
[2020-11-06] MEDS ORDERED: CORE6.25 PO (11:54)
[2020-11-06] MEDS ORDERED: ACET-907 PO (11:54)
[2020-11-06] MEDS ORDERED: DULC10SU2 PR (11:54)
[2020-11-06] MEDS ORDERED: HOME MED LIST COMPLETE! XX SCH (11:55)
[2020-11-06] MEDS ORDERED: ACETAMINOPHEN TAB 650MG DOSE (2X325MG) PO PRN ×2 (13:05→13:10)
[2020-11-06 13:07] LABS: RSV AMPLIFICATION NEGATIVE (NEGATIVE)
[2020-11-06] MEDS ORDERED: BISACODYL 10 MG SUPP PR PRN (13:10)
[2020-11-06] MEDS ORDERED: FLEET ENEMA PR PRN (13:10)
[2020-11-06] MEDS ORDERED: MOM 30ML SUSPENSION UDC PO PRN (13:10)
[2020-11-06] MEDS ORDERED: MAALOX 30 ML SUSP *UDC PO PRN (13:10)
--- NOTE | 2020-11-06 13:47 | HPEPDOC ---
General Date of Admission November 06, 2020 Date of Service: Nov 06, 2020 Chief Complaint The patient is a 84-year-old female admitted with a reason for visit of Neuro. Source: Patient, RN/MD History of Present Illness Mrs. Lewis is an 84-year-old female from [facility] with bilateral knee osteoarthritis, hypertension, CVA, and DM type II who presents with syncope. About a month ago, patient went to [facility] for physical therapy. She has osteoarthritis of the knees and it has been difficult for her to ambulate. They are working with her on ambulation with a walker. She was feeling good yesterday. Today she was working with the physical therapist, when she sat down on the walker and passed out. Patient did not fall, but collapsed on her walker. In the ED, patient had systolic blood pressures in the 90s. She was orthostatic positive by symptoms, not by numbers. Her blood pressure increased with standing. Patient tells me that she is always had high blood pressure. She is currently on 3 antihypertensives. She denies any recent changes in medications or sick contacts. She denies any fever or chills, changes in vision, chest pain, dyspnea, abdominal pain, diarrhea, dysuria, or changes in appetite. She tells me that she is eating and drinking without issue. She denies any recent changes to her medications. Other than the osteoarthritis of her knees, her only other complaint was diffuse pruritus. Started since living at [facility]. She is had this before in the past, and it resolved with changing detergent. She suspects that it is a detergent that is causing her diffuse pruritus. Patient will be placed in observation for syncope. Home Medications Scheduled Acetaminophen (Tylenol Arthritis) 650 Mg Tablet.er, 650 MG PO BID, (Reported) Amino Acids/Protein Hydrolys (Liquacel Liquid Protein) 16 Gram-100 Kcal/30 Ml Liquid, 30 ML PO BID, (Reported) Amlodipine Besylate (Amlodipine Besylate) 5 Mg Tablet, 5 MG PO DAILY, (Reported) Ascorbic Acid (Vitamin C) 500 Mg Tablet, 500 MG PO DAILY, (Reported) Aspirin (Aspirin EC) 81 Mg Tablet.dr, 81 MG PO DAILY, (Reported) Atorvastatin Calcium (Atorvastatin Calcium) 40 Mg Tablet, 40 MG PO QHS, (Repor davina) Bimatoprost (Lumigan) 0.01% 2.5ML Drops, 1 DROP OD QHS, (Reported) Carvedilol (Coreg) 6.25 Mg Tablet, 6.25 MG PO BID, (Reported) Cyanocobalamin (Vitamin B-12) (Vitamin B-12) 1,000 Mcg Tablet, 1,000 MCG PO DAILY, (Reported) Diclofenac Sodium (Voltaren Arthritis Pain) 1 % Gel..gram., 1 DOSE TOP TID, (Reported) APPLY TO PAINFUL AREAS Docusate Sodium (Colace) 100 Mg Capsule, 100 MG PO DAILY, (Reported) Folic Acid (Folic Acid) 1 Mg Tablet, 1 MG PO DAILY, (Reported) Lisinopril (Lisinopril) 20 Mg Tablet, 20 MG PO DAILY, (Reported) Memantine HCl (Memantine HCl) 10 Mg Tablet, 10 MG PO QHS, (Reported) Nut.tx.gluc.intoler,Lac-Fr,Soy (Glucerna Advance) 237 Ml Liquid, 120 ML PO BID, (Reported) Thiamine HCl (Vitamin B-1) 100 Mg Tablet, 100 MG PO DAILY, (Reported) Scheduled PRN Acetaminophen (Tylenol) 325 Mg Tablet, 650 MG PO Q4H PRN for MILD PAIN (PS 1-4), (Reported) Aluminum/Magnesium/Simeth (Mag-Al Plus Suspension) 30 Ml Oral.susp, 30 ML PO Q4H PRN for INDIGESTION, (Reported) Bisacodyl (Dulcolax) 10 Mg Supp.rect, 10 MG IN DAILY PRN for CONSTIPATION, (Reported) Magnesium Hydroxide (Milk of Magnesia) 400 Mg/5 Ml Oral.susp, 30 ML PO DAILY PRN for CONSTIPATION, (Reported) Sodium Phosphate,Bedford-Dibasic (Enema) 133 Ml Enema, 1 ANITA IN DAILY PRN for CONSTIPATION, (Reported) Allergies Coded Allergies: No Known Allergies (Unverified , 04/04/19) Past Medical History Medical History 1. Anxiety 2. Hypertension 3. Hyperlipidemia 4. Ovarian mass, right 5. Hemorrhagic infarction 6. Subacute right parietal lobe infarct 7. Alcohol abuse 8. Mild segment stenosis, proximal vertebral artery/intracranial 9. Diabetes mellitus type 2 Surgical History 1. Tonsillectomy 2. Right cataract 3. Ovarian mass removed Family History Father: at 83 years old, no known medical problems Mother: at 76 years old, history of gallbladder Social History * Smoker: former Smoker Drugs: denies A-FIB/CHADSVASC A-FIB History Current/History of A-Fib/PAF?: No Review of Systems Constitutional: Reports: Lethargy; Denies: Chills, Fever Eyes: Denies: Vision change ENT: Denies: Sore Throat Skin: Reports: Itching (Diffuse); Denies: Rash Pulmonary: Denies: Dyspnea Cardiovascular: Denies: Chest Pain Gastrointestinal: Denies: Nausea, Abdominal Pain, Diarrhea Genitourinary: Denies: Dysuria Hematologic: Denies: Bruising Musculoskeletal: Reports: Joint Pain (Bilateral knee pain, chronic) Neurological: Denies: Numbness Psych: Reports: Anxiety; Denies: Depression Physical Examination General Exam: Positive: Alert, Cooperative Eye Exam: Positive: EOMI; Negative: Sclera icteric ENT Exam: Positive: Atraumatic Neck Exam: Positive: Supple Chest Exam: Positive: Clear to auscultation, Diminished Heart Exam: Positive: Rate Normal, Regular Rhythm Abdomen Exam: Positive: Normal bowel sounds, Soft; Negative: Tenderness Extremity Exam: Negative: Edema Neuro Exam: Positive: Cranial Nerves 3-12 NL Psych Exam: Positive: Mental status NL, Mood NL Vital Signs Vital Signs Date Time Temp Pulse Resp B/P (MAP) Pulse Ox O2 Delivery O2 Flow Rate FiO2 11/06/20 13:00 97.1 66 16 105/63 (77) 99 Room Air Laboratory Data Labs 24H Laboratory Tests 2 11/06/20 10:39: Immature Granulocyte % (Auto) 0.5, Neutrophils (%) (Auto) 76.9H, Lymphocytes (%) (Auto) 12.7L, Monocytes (%) (Auto) 7.2, Eosinophils (%) (Auto) 1.7, Basophils (%) (Auto) 1.0, Neutrophils # (Auto) 7.7, Lymphocytes # (Auto) 1.3L, Monocytes # (Auto) 0.7, Eosinophils # (Auto) 0.2, Basophils # (Auto) 0.1, Nucleated Red Blood Cells % (auto) 0.0, Anion Gap 2L, Glomerular Filtration Rate 56.1, Calcium Level 8.8, Magnesium Level 2.3, Total Creatine Kinase 30, Creatine Kinase MB < 1.0, Creatine Kinase MB Relative Index 3.33, Troponin I < 0.02, Thyroid Stimulating Hormone (TSH) 6.120H 11/06/20 12:12: Coronavirus (COVID-19)(PCR) NEGATIVE, Influenza Type A (RT-PCR) NEGATIVE, Influenza Type B (RT-PCR) NEGATIVE, Respiratory Syncytial Virus (PCR) NEGATIVE CBC/BMP Laboratory Tests 11/06/20 10:39 Assessment/Plan Mrs. Lewis is an 84-year-old female from [facility] with bilateral knee osteoarthritis, hypertension, CVA, and DM type II who presents with syncope. Will order echocardiogram and monitor on telemetry for cardiac causes of syncope. If negative, her syncope is most likely from medications. We will hold her amlodipine, Coreg, and lisinopril. She will be given IV fluids to help with her blood pressure. Plan / VTE VTE Prophylaxis Ordered?: Yes Plan Plan 1. Syncope We will order echocardiogram and monitor on telemetry to rule out cardiogenic causes Hold lisinopril, Coreg, and amlodipine Continue with IVF 2. Diabetes mellitus Patient not on any diabetic medications HbA1c in 2019 was 6.6 We will put patient on carb consistent diet Recheck HbA1c 3. History of ischemic and hemorrhagic CVA Continue aspirin and atorvastatin 4. Glaucoma Convert bimatoprost to latanoprost 5. Alcohol abuse disorder Continue thiamine and folic acid 6. Osteoarthritis of the knees bilaterally Continue scheduled and as needed acetaminophen. Physical therapy ordered 7. DVT prophylaxis SCDs and teds Disposition: Pending echocardiogram and telemetry results. Suspect this may be drug-induced, will hold antihypertensives. When medically stable, will need to see if patient may return to [facility]. Possibly tomorrow if work-up is negative. VIKKI ALEJO DO Nov 06, 2020 13:46
[2020-11-06 13:55] LABS: FREE T4 0.99 NG/DL (0.76-1.46)
[2020-11-06 14:00] VITALS: BP 135/65
[2020-11-06 14:03] LABS: TOTAL T3 151.1 NG/DL (60.0-181.0)
[2020-11-06] MEDS: ANALGESIC BALM CRM 3OZ TOP PRN (15:13)
--- NOTE | 2020-11-06 20:44 | ECGEPIP ---
[facility] - ED Test Date: 2020-11-06 Pat Name: YAMILEX SALINAS Department: Room: - Gender: Female [employer] Electric[employer]: : 1935 Requested By: Mabel Cardona Order Number: [id number] Reading MD: Cosme Howard Measurements Intervals [place] Rate: 64 P: 78 [place]: 190 QRS: 4 QRSD: 60 T: 54 QT: 420 QTc: 433 Interpretive Statements Normal sinus rhythm Low voltage QRS new from tracing done 04-04-19 Electronically Signed on 11-06-2020 20:43:24 EDT by Cosme Howard
[2020-11-06] MEDS: MEMANTINE 5MG TABLET (NAMENDA) PO SCH (21:22)
[2020-11-06] MEDS: ACETAMINOPHEN 650MG ER TAB (TYLENOL ARTHRITIS) PO SCH (21:22)
[2020-11-06] MEDS: ATORVASTATIN 20 MG TAB PO SCH (21:22)
[2020-11-06] MEDS: LATANOPROST 0.005% OPHTH SOLN 2.5 ML OD SCH (21:22)
[2020-11-06 22:00] VITALS: BP 116/56
[2020-11-07 06:00] VITALS: BP 121/62
[2020-11-07 06:17] LABS: HEMATOCRIT 28.6 % (36.0-47.0); MEAN CORPUSCULAR HEMOGLOBIN 30.5 pg (27.0-33.0); MEAN CORPUSCULAR HGB CONC 31.8 g/dl (32.0-36.5); PLATELET COUNT, AUTOMATED 238 10^3/uL (150-450); RED BLOOD COUNT 2.98 10^6/uL (4.00-5.40); WHITE BLOOD COUNT 8.5 10^3/uL (4.0-10.0)
[2020-11-07 06:26] LABS: HEMOGLOBIN 9.1 g/dl (12.0-15.5)
[2020-11-07 06:55] LABS: BLOOD UREA NITROGEN 18 MG/DL (7-18); CALCIUM LEVEL 8.4 MG/DL (8.8-10.2); CARBON DIOXIDE LEVEL 25 MEQ/L (21-32); CHLORIDE LEVEL 113 MEQ/L (98-107); CREATININE FOR GFR 0.63 MG/DL (0.55-1.30); FREE T4 0.98 NG/DL (0.76-1.46); GLOMERULAR FILTRATION RATE > 60.0 (>32); GLUCOSE, FASTING 89 MG/DL (70-100); POTASSIUM SERUM 4.2 MEQ/L (3.5-5.1); SODIUM LEVEL 142 MEQ/L (136-145)
[2020-11-07] MEDS: FOLIC ACID 1 MG TAB PO SCH (07:55)
[2020-11-07] MEDS: ASPIRIN 81MG ENTERIC TABLET PO SCH (07:55)
[2020-11-07] MEDS: DOCUSATE SODIUM 100MG CAPSULE PO SCH (07:55)
[2020-11-07] MEDS: ASCORBIC ACID 500 MG TAB PO SCH (07:55)
[2020-11-07] MEDS: ACETAMINOPHEN 650MG ER TAB (TYLENOL ARTHRITIS) PO SCH ×2 (07:55→21:14)
[2020-11-07] MEDS: THIAMINE 100 MG TAB PO SCH (07:56)
[2020-11-07] MEDS: ANALGESIC BALM CRM 3OZ TOP PRN ×2 (08:00→19:55)
[2020-11-07] MEDS ORDERED: ENOXAPARIN 40MG/0.4ML SYRINGE (J1650 PER 10MG) SC SCH (09:00)
[2020-11-07 11:00] VITALS: BP_SYST 122; BP_SYST 142; BP_DIAS 65; BP_DIAS 69
[2020-11-07 11:13] LABS: TOTAL T3 92.1 NG/DL (60.0-181.0)
[2020-11-07] MEDS ORDERED: NS 500 ML IV ONE (11:15)
[2020-11-07 14:00] VITALS: BP 124/63
--- NOTE | 2020-11-07 15:01 | IPNPDOC ---
Subjective Date Seen The patient was seen on 11/07/20. Subjective Chief Complaint/HPI Mrs. Lewis is an 84-year-old female from [facility] with bilateral knee osteoarthritis, hypertension, CVA, and DM type II who presents with syncope. Th is morning, she denied any chest pain or dyspnea. Nurses attempted to do orthostatic vitals, but when patient attempted to stand she got dizzy and was not able to tolerate standing. Unable to do standing vital signs. Her dizziness was positional. Ordered for MRI and fluid bolus. Objective Physical Examination General Exam: Positive: Alert, Cooperative Eye Exam: Positive: EOMI; Negative: Sclera icteric ENT Exam: Positive: Atraumatic Neck Exam: Positive: Supple Chest Exam: Positive: Clear to auscultation, Diminished Heart Exam: Positive: Rate Normal, Regular Rhythm Abdomen Exam: Positive: Normal bowel sounds, Soft; Negative: Tenderness Extremity Exam: Negative: Edema Neuro Exam: Positive: Cranial Nerves 3-12 NL Psych Exam: Positive: Mental status NL, Mood NL Assessment /Plan Assessment Mrs. Lewis is an 84-year-old female from [facility] with bilateral knee osteoarthritis, hypertension, CVA, and DM type II who presents with syncope. No events on telemetry. Echocardiogram pending. Patient has not needed antihy pertensives, will continue to hold. Otherwise, she has dizziness that is positional. Will order MRI. Plan/VTE VTE Prophylaxis Ordered?: Yes Plan 1. Syncope No events on telemetry -Pending echocardiogram results Hold lisinopril, Coreg, and amlodipine 2. Dizziness -Unable to stand due to dizziness -Worse with movement -Will order MRI to evaluate 3. Diabetes mellitus Patient not on any diabetic medications HbA1c in 2019 was 6.6 We will put patient on carb consistent diet Recheck HbA1c 3. History of ischemic and hemorrhagic CVA Continue aspirin and atorvastatin 4. Glaucoma Convert bimatoprost to latanoprost 5. Alcohol abuse disorder Continue thiamine and folic acid 6. Osteoarthritis of the knees bilaterally Continue scheduled and as needed acetaminophen. Physical therapy ordered 7. DVT prophylaxis SCDs and teds Disposition: Pending echocardiogram and MRI results. Pending tolerance with standing. VS, I&O, 24H, Fishbone Vital Signs/I&O Vital Signs Date Time Temp Pulse Resp B/P (MAP) Pulse Ox O2 Delivery O2 Flow Rate FiO2 11/07/20 06:00 97.0 63 17 121/62 (81) 98 Room Air I&O- Last 24 Hours up to 6 AM 11/07/20 05:59 Intake Total 1020 ml Output Total 0 ml Balance 1020 ml Laboratory Data 24H LABS Laboratory Tests 2 11/07/20 05:19: Nucleated Red Blood Cells % (auto) 0.0, Anion Gap 4L, Glomerular Filtration Rate > 60.0, Calcium Level 8.4L, Thyroid Stimulating Hormone (TSH) 2.090, Free Thyroxine 0.98, Total Triiodothyronine 92.1 CBC/BMP Laboratory Tests 11/07/20 05:19 MARVIKKI DO Nov 07, 2020 15:01
[2020-11-07] MEDS: LATANOPROST 0.005% OPHTH SOLN 2.5 ML OD SCH (21:14)
[2020-11-07] MEDS: ATORVASTATIN 20 MG TAB PO SCH (21:14)
[2020-11-07] MEDS: MEMANTINE 5MG TABLET (NAMENDA) PO SCH (21:14)
[2020-11-07 22:00] VITALS: BP 135/68
--- NOTE | 2020-11-07 23:27 | REPVR ---
PROCEDURE INFORMATION: Exam: MR Head Without Contrast Exam date and time: 11/07/2020 10:03 PM Age: 84 years old Clinical indication: Dizziness TECHNIQUE: Imaging protocol: MR of the head without contrast. COMPARISON: 1. CT Head without contrast 2019-10-03 11:[address] Head without contrast 2016-10-17 18:55 FINDINGS: Brain: Chronic right parietal cortical and subcortical infarct. Moderate severe chronic confluent T2 signal hyperintensity in the white matter. Chronic right occipital cortical infarct. Acute lacunar infarcts including in the right hemicerebellum, and several tiny acute lacunar infarcts in the deep and periventricular white matter. Chronic blood product deposition in the left basal ganglia associated with the chronic lacunar infarct. Moderate cerebral volume loss. Cerebral ventricles: Moderate ventricular enlargement. Bones/joints: Unremarkable. Paranasal sinuses: Normal as visualized. No acute sinusitis. Mastoid air cells: Normal as visualized. No mastoid effusion. Orbital cavity: Evidence of previous ocular surgery with intraocular lens implants. Soft tissues: Unremarkable. IMPRESSION: Acute lacunar infarcts including in the right hemicerebellum, and several tiny acute lacunar infarcts in the deep and periventricular white matter. Electronically signed by: Cosme Jones On 11/07/2020 23:27:06 PM
[2020-11-08 01:24] VITALS: BP 154/66
[2020-11-08 01:38] LABS: BASO # 0.1 10^3/uL (0.0-0.2); BASO % 1.1 % (0.0-1.0); EOS # 0.3 10^3/uL (0.0-0.5); EOS % 3.1 % (0.0-3.0); HEMATOCRIT 30.9 % (36.0-47.0); HEMOGLOBIN 9.9 g/dl (12.0-15.5); LYMPH % 21.2 % (24.0-44.0); MEAN CORPUSCULAR HEMOGLOBIN 30.7 pg (27.0-33.0); MONO # 0.7 10^3/uL (0.0-0.8); MONO % 7.5 % (2.0-8.0); NEUTROPHILS # 6.2 10^3/uL (1.5-8.5); NEUTROPHILS % 66.8 % (36.0-66.0); PLATELET COUNT, AUTOMATED 262 10^3/uL (150-450); RED BLOOD COUNT 3.22 10^6/uL (4.00-5.40); WHITE BLOOD COUNT 9.3 10^3/uL (4.0-10.0)
[2020-11-08 01:50] LABS: INR 0.99; PROTHROMBIN TIME 13.5 SECONDS (12.7-14.5)
[2020-11-08 02:11] LABS: BLOOD UREA NITROGEN 17 MG/DL (7-18); CALCIUM LEVEL 8.3 MG/DL (8.8-10.2); CARBON DIOXIDE LEVEL 26 MEQ/L (21-32); CHLORIDE LEVEL 110 MEQ/L (98-107); CREATININE FOR GFR 0.74 MG/DL (0.55-1.30); FERRITIN 480 NG/ML (8-252); GLOMERULAR FILTRATION RATE > 60.0 (>32); GLUCOSE, FASTING 114 MG/DL (70-100); IRON (FE) 59 UG/DL (50-170); PERCENT SATURATION 31.7 % (13.2-45.0); POTASSIUM SERUM 4.2 MEQ/L (3.5-5.1); SODIUM LEVEL 140 MEQ/L (136-145); TOTAL IRON BINDING CAPACITY 186 UG/DL (250-450)
[2020-11-08 06:00] VITALS: BP_SYST 145; BP_SYST 149; BP_DIAS 75; BP_DIAS 76
[2020-11-08 06:31] LABS: HEMATOCRIT 31.3 % (36.0-47.0); HEMOGLOBIN 10.1 g/dl (12.0-15.5); MEAN CORPUSCULAR HEMOGLOBIN 30.7 pg (27.0-33.0); MEAN CORPUSCULAR HGB CONC 32.3 g/dl (32.0-36.5); MEAN CORPUSCULAR VOLUME 95.1 fl (80.0-96.0); PLATELET COUNT, AUTOMATED 261 10^3/uL (150-450); RED BLOOD COUNT 3.29 10^6/uL (4.00-5.40); WHITE BLOOD COUNT 8.9 10^3/uL (4.0-10.0)
[2020-11-08 06:45] LABS: HEMOGLOBIN A1c 6.1 %
[2020-11-08 06:53] LABS: BLOOD UREA NITROGEN 15 MG/DL (7-18); CALCIUM LEVEL 8.6 MG/DL (8.8-10.2); CARBON DIOXIDE LEVEL 26 MEQ/L (21-32); CHLORIDE LEVEL 111 MEQ/L (98-107); GLOMERULAR FILTRATION RATE > 60.0 (>32); GLUCOSE, FASTING 87 MG/DL (70-100); POTASSIUM SERUM 4.2 MEQ/L (3.5-5.1); SODIUM LEVEL 141 MEQ/L (136-145)
[2020-11-08] MEDS ORDERED: ISOVUE-370 76% 100ML VIAL As Ordered ONE (08:36)
[2020-11-08 08:56] LABS: FOLATE 22.1 NG/ML (>5.4); VITAMIN B12 LEVEL 1284 PG/ML (247-911)
--- NOTE | 2020-11-08 09:39 | REPVR ---
PROCEDURE INFORMATION: Exam: CT Angiography Neck With Contrast Exam date and time: 11/08/2020 8:38 AM Age: 84 years old Clinical indication: Weakness and other: CVA TECHNIQUE: Imaging protocol: Computed tomography angiography of the neck with contrast. 3D rendering (Not supervised by radiologist): MIP and/or 3D reconstructed images were created by the technologist. Radiation optimization: All CT scans at this facility use at least one of these dose optimization techniques: automated exposure control; mA and/or kV adjustment per patient size (includes targeted exams where dose is matched to clinical indication); or iterative reconstruction. Contrast material: ISOVUE 370; Contrast volume: 100 ml; Contrast route: INTRAVENOUS (IV); COMPARISON: CT Spine,cervical w/o contrast 10/03/2019 11:47 AM FINDINGS: Right common carotid artery: No stenosis. No dissection or occlusion. Right internal carotid artery: There are coarse calcific atherosclerotic changes of the right carotid bulb. There is no significant stenosis. Right external carotid artery: No occlusion or stenosis of the origin. Left common carotid artery: No stenosis. No dissection or occlusion. Left internal carotid artery: There are coarse calcific atherosclerotic changes of the left carotid bulb and proximal internal carotid artery. Left external carotid artery: No occlusion or stenosis of the origin. Right vertebral artery: No stenosis. No dissection or occlusion. Left vertebral artery: No stenosis. No dissection or occlusion. Aorta: There are coarse calcific and noncalcific atherosclerotic changes of the thoracic aorta. Soft tissues: Normal. No significant soft tissue swelling. Bones/joints: No acute fracture. IMPRESSION: No significant cervical arterial stenosis. REFERENCES: NASCET CRITERIA. The degree of internal carotid artery stenosis is based on NASCET criteria. Normal is no stenosis. Mild is less than 50% stenosis. Moderate is 50-69% stenosis. Severe is 70% to 99% stenosis. Total occlusion is no detectable patent lumen. Electronically signed by: Carol Ann Zamorano On 11/08/2020 09:39:21 AM
--- NOTE | 2020-11-08 09:51 | REPVR ---
PROCEDURE INFORMATION: Exam: CT Angiography Head With Contrast, Arteriography Exam date and time: 11/08/2020 8:38 AM Age: 84 years old Clinical indication: Weakness and other: CVA TECHNIQUE: Imaging protocol: Computed tomography angiography of the head with contrast. Exam focused on the arteries. 3D rendering (Not supervised by radiologist): MIP and/or 3D reconstructed images were created by the technologist. Radiation optimization: All CT scans at this facility use at least one of these dose optimization techniques: automated exposure control; mA and/or kV adjustment per patient size (includes targeted exams where dose is matched to clinical indication); or iterative reconstruction. Contrast material: ISOVUE 370; Contrast volume: 100 ml; Contrast route: INTRAVENOUS (IV); COMPARISON: MRI-Brain without Contrast 11/07/2020 9:53 PM FINDINGS: ANTERIOR CIRCULATION: Right internal carotid artery: There are coarse calcific atherosclerotic changes of the right carotid siphon. Intracranial segment is patent with no significant stenosis. No aneurysm. Right middle cerebral artery: Unremarkable. No occlusion or significant stenosis. No aneurysm. Right anterior cerebral artery: Unremarkable. No occlusion or significant stenosis. No aneurysm. Left internal carotid artery: There are coarse calcific atherosclerotic changes of the left carotid siphon. Intracranial segment is patent with no significant stenosis. No aneurysm. Left middle cerebral artery: There is moderate focal stenosis involving the mid M1 segment. Left anterior cerebral artery: Unremarkable. No occlusion or significant stenosis. No aneurysm. POSTERIOR CIRCULATION: Right vertebral artery: Unremarkable. No occlusion or significant stenosis. No aneurysm. Left vertebral artery: Unremarkable. No occlusion or significant stenosis. No aneurysm. Basilar artery: There is moderate focal stenosis of the mid to distal basilar artery. Right posterior cerebral artery: There is a origin of the right posterior cerebral artery. No occlusion or significant stenosis. No aneurysm. Left posterior cerebral artery: There is moderate stenosis at the origin of the left posterior cerebral artery. Brain: No definite mass, mass effect, or midline shift. Cerebral ventricles: No ventriculomegaly. Bones/joints: Unremarkable. No acute fracture. Soft tissues: Unremarkable. IMPRESSION: 1. 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 2. Moderate focal stenosis at the origin of the left posterior cerebral artery. 3. Moderate focal stenosis involving the mid M1 segment of the left Electronically signed by: Carol Ann Zamorano On 11/08/2020 09:50:59 AM
[2020-11-08] MEDS: ACETAMINOPHEN 650MG ER TAB (TYLENOL ARTHRITIS) PO SCH ×2 (10:22→20:40)
[2020-11-08] MEDS: FOLIC ACID 1 MG TAB PO SCH (10:23)
[2020-11-08] MEDS: MECLIZINE 25 MG TABLET PO SCH ×3 (10:23→20:40)
[2020-11-08] MEDS: ASPIRIN 81MG ENTERIC TABLET PO SCH (10:23)
[2020-11-08] MEDS: THIAMINE 100 MG TAB PO SCH (10:23)
[2020-11-08] MEDS: ASCORBIC ACID 500 MG TAB PO SCH (10:23)
[2020-11-08] MEDS: DOCUSATE SODIUM 100MG CAPSULE PO SCH (10:24)
[2020-11-08 14:00] VITALS: BP 130/67
[2020-11-08 18:00] VITALS: BP 114/64
--- NOTE | 2020-11-08 18:33 | IPNPDOC ---
Subjective Date Seen The patient was seen on 11/08/20. Subjective Chief Complaint/HPI Mrs. Lewis is an 84-year-old female from [facility] with bilateral knee osteoarthritis, hypertension, CVA, and DM type II who presents with syncope but then found to have acute CVA. Overnight, her MRI was positive for acute infarct in the right hemicerebellum and periventricular white matter. 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 I reached out to neurology who recommended increasing the aspirin to full dose aspirin. Otherwise, when I spoke with the patient, she denied any chest pain or dyspnea. She still has vertigo. I've added on scheduled meclizine. Objective Physical Examination General Exam: Positive: Alert, Cooperative Eye Exam: Positive: EOMI; Negative: Sclera icteric ENT Exam: Positive: Atraumatic Neck Exam: Positive: Supple Chest Exam: Positive: Clear to auscultation, Diminished Heart Exam: Positive: Rate Normal, Regular Rhythm Abdomen Exam: Positive: Normal bowel sounds, Soft; Negative: Tenderness Extremity Exam: Negative: Edema Neuro Exam: Positive: Cranial Nerves 3-12 NL Psych Exam: Positive: Mental status NL, Mood NL Assessment /Plan Assessment Mrs. Lewis is an 84-year-old female from [facility] with bilateral knee osteoarthritis, hypertension, CVA, and DM type II who presents with syncope. No events on telemetry. Echocardiogram pending. Patient has not needed antihypertensives, will continue to hold. Otherwise, she has dizziness that is positional. Will order MRI. MRI is positive for CVA. Patient will need 48 hours of permissive hypertension. Otherwise, she had a cerebellar stroke which would explain her vertigo. Started patient on meclizine. Spoke with neurology. Recommended increasing aspirin to full dose aspirin. I've added on meclizine for vertigo. Plan/VTE VTE Prophylaxis Ordered?: Yes Plan 1. Syncope No events on telemetry -Pending echocardiogram results Hold lisinopril, Coreg, and amlodipine 2. 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 Ordering lipid panel for tomorrow -Spoke with neurology, recommending increasing aspirin to full dose aspirin -Added on meclizine for vertigo 3. Diabetes mellitus Patient not on any diabetic medications HbA1c in 2019 was 6.6. Now 6.1 Diet controlled on carb consistent diet 4. History of ischemic and hemorrhagic CVA Continue aspirin and atorvastatin 5. Glaucoma Convert bimatoprost to latanoprost 6. Alcohol abuse disorder Continue thiamine and folic acid 7. Osteoarthritis of the knees bilaterally Continue scheduled and as needed acetaminophen. Physical therapy ordered 8. DVT prophylaxis SCDs and teds Disposition: Pending clinical improvement in vertigo. VS, I&O, 24H, Fishbone Vital Signs/I&O Vital Signs Date Time Temp Pulse Resp B/P (MAP) Pulse Ox O2 Delivery O2 Flow Rate FiO2 11/08/20 14:00 97.7 73 17 130/67 (88) 98 Room Air I&O- Last 24 Hours up to 6 AM 11/08/20 06:00 Intake Total 1220 ml Output Total 0 ml Balance 1220 ml Laboratory Data 24H LABS Laboratory Tests 2 11/08/20 01:05: Bedside Glucose (Misc Panel) 116H 11/08/20 01:31: Immature Granulocyte % (Auto) 0.3, Neutrophils (%) (Auto) 66.8H, Lymphocytes (%) (Auto) 21.2L, Monocytes (%) (Auto) 7.5, Eosinophils (%) (Auto) 3.1H, Basophils (%) (Auto) 1.1H, Neutrophils # (Auto) 6.2, Lymphocytes # (Auto) 2.0, Monocytes # (Auto) 0.7, Eosinophils # (Auto) 0.3, Basophils # (Auto) 0.1, Nucleated Red Blood Cells % (auto) 0.0, Prothrombin Time 13.5, Prothromb Time International Ratio 0.99, Anion Gap 4L, Glomerular Filtration Rate > 60.0, Calcium Level 8.3L, Iron Level 59, Total Iron Binding Capacity 186L, Transferrin % Saturation 31.7, Ferritin 480H, Vitamin B12 Level 1284H, Folate 22.1 11/08/20 05:57: Nucleated Red Blood Cells % (auto) 0.0, Anion Gap 4L, Glomerular Filtration Rate > 60.0, Calcium Level 8.6L, Estimated Mean Plasma Glucose 128H, Hemoglobin A1c 6.1 CBC/BMP Laboratory Tests 11/08/20 01:31 11/08/20 05:57 VIKKI ALEJO DO Nov 08, 2020 18:33
[2020-11-08 20:38] VITALS: BP 135/63
[2020-11-08] MEDS: ATORVASTATIN 20 MG TAB PO SCH (20:40)
[2020-11-08] MEDS: MEMANTINE 5MG TABLET (NAMENDA) PO SCH (20:40)
[2020-11-08] MEDS: LATANOPROST 0.005% OPHTH SOLN 2.5 ML OD SCH (20:40)
[2020-11-08] MEDS: ANALGESIC BALM CRM 3OZ TOP PRN (20:40)
--- NOTE | 2020-11-08 22:08 | REPVR ---
PROCEDURE INFORMATION: Exam: CT Head Without Contrast Exam date and time: 11/08/2020 9:33 PM Age: 84 years old Clinical indication: Other: Sensory changes lue, recent stroke TECHNIQUE: Imaging protocol: Computed tomography of the head without contrast. Radiation optimization: All CT scans at this facility use at least one of these dose optimization techniques: automated exposure control; mA and/or kV adjustment per patient size (includes targeted exams where dose is matched to clinical indication); or iterative reconstruction. COMPARISON: MRI-Brain without Contrast 11/07/2020 9:53 PM FINDINGS: Brain: Encephalomalacia is seen in the right parietal lobe. Edema or developing encephalomalacia is seen in the right occipital lobe. There are global involutional changes of the brain which are in keeping with the patient's age. Periventricular hypodensities are nonspecific but most likely reflect chronic microvascular ischemic disease. Old lacunar infarcts are noted bilaterally. There is no evidence of intracranial hemorrhage. No abnormal extra-axial fluid collections are identified. No mass effect or midline shift is seen. Cerebral ventricles: No ventriculomegaly. Paranasal sinuses: The visualized sinuses are unremarkable. Mastoid air cells: There is no mastoid effusion detected. Vasculature: Atherosclerotic vascular disease is noted at the level of the skull base. Bones/joints: Unremarkable. No acute fracture. IMPRESSION: 1. No acute hemorrhage, mass effect or midline shift. 2. Encephalomalacia in the right parietal lobe. 3. Edema or developing encephalomalacia in the right occipital lobe. 4. Old lacunar infarcts bilaterally. Electronically signed by: Maryan Hardwick On 11/08/2020 22:08:03 PM
[2020-11-08] MEDS ORDERED: NS 1,000 ML IV SCH (23:35)
[2020-11-09 00:20] VITALS: BP 121/53
[2020-11-09 06:20] VITALS: BP 131/56
[2020-11-09 07:00] LABS: HEMATOCRIT 30.8 % (36.0-47.0); HEMOGLOBIN 9.9 g/dl (12.0-15.5); MEAN CORPUSCULAR HEMOGLOBIN 30.7 pg (27.0-33.0); MEAN CORPUSCULAR HGB CONC 32.1 g/dl (32.0-36.5); MEAN CORPUSCULAR VOLUME 95.4 fl (80.0-96.0); PLATELET COUNT, AUTOMATED 260 10^3/uL (150-450); RED BLOOD COUNT 3.23 10^6/uL (4.00-5.40); WHITE BLOOD COUNT 9.2 10^3/uL (4.0-10.0)
[2020-11-09 07:30] LABS: BLOOD UREA NITROGEN 15 MG/DL (7-18); CALCIUM LEVEL 8.5 MG/DL (8.8-10.2); CARBON DIOXIDE LEVEL 25 MEQ/L (21-32); CHLORIDE LEVEL 112 MEQ/L (98-107); CHOLESTEROL LEVEL 131 MG/DL (<200); CHOLESTEROL RISK RATIO 3.742 (<5); GLOMERULAR FILTRATION RATE > 60.0 (>32); GLUCOSE, FASTING 86 MG/DL (70-100); HDL CHOLESTEROL 35 MG/DL (>40); LDL CHOLESTEROL 69 MG/DL (<100); NON-HDL-C 96 MG/DL; POTASSIUM SERUM 4.4 MEQ/L (3.5-5.1); SODIUM LEVEL 142 MEQ/L (136-145); TRIGLYCERIDES LEVEL 135 MG/DL (<150)
[2020-11-09] MEDS: DOCUSATE SODIUM 100MG CAPSULE PO SCH (08:51)
[2020-11-09] MEDS: ASCORBIC ACID 500 MG TAB PO SCH (08:51)
[2020-11-09] MEDS: ACETAMINOPHEN 650MG ER TAB (TYLENOL ARTHRITIS) PO SCH ×2 (08:51→21:18)
[2020-11-09] MEDS: MECLIZINE 25 MG TABLET PO SCH ×3 (08:51→21:17)
[2020-11-09] MEDS: ASPIRIN ENTERIC 325 MG TAB PO SCH (08:51)
[2020-11-09] MEDS: FOLIC ACID 1 MG TAB PO SCH (08:51)
[2020-11-09] MEDS: THIAMINE 100 MG TAB PO SCH (08:51)
[2020-11-09] MEDS: ANALGESIC BALM CRM 3OZ TOP PRN ×2 (08:53→21:53)
--- NOTE | 2020-11-09 13:42 | IPNPDOC ---
Subjective Date Seen The patient was seen on 11/09/20. Subjective Chief Complaint/HPI Mrs. Lewis is an 84-year-old female from [facility] with bilateral knee osteoarthritis, hypertension, CVA, and DM type II who presents with syncope but then found to have acute CVA. Overnight, patient was complaining of left arm paresthesias. CT head demonstrated right parietal lobe encephalomalacia and edema/developing encephalomalacia in the right occipital lobe. Night team contacted neurology who recommended MRI. Otherwise this morning, she still complaining of vertigo. Denies any chest pain or dyspnea. Objective Physical Examination General Exam: Positive: Alert, Cooperative Eye Exam: Positive: EOMI; Negative: Sclera icteric ENT Exam: Positive: Atraumatic Neck Exam: Positive: Supple Chest Exam: Positive: Clear to auscultation, Diminished Heart Exam: Positive: Rate Normal, Regular Rhythm Abdomen Exam: Positive: Normal bowel sounds, Soft; Negative: Tenderness Extremity Exam: Negative: Edema Neuro Exam: Positive: Other (Vertigo) Psych Exam: Positive: Mental status NL, Mood NL Assessment /Plan Assessment Mrs. Lewis is an 84-year-old female from [facility] with bilateral knee osteoarthritis, hypertension, CVA, and DM type II who presents with syncope. No events on telemetry. Echocardiogram pending. Patient has not needed antihypertensives, will continue to hold. Otherwise, she has dizziness that is positional. Will order MRI. MRI is positive for CVA. Patient will need 48 hours of permissive hypertension. Otherwise, she had a cerebellar stroke which would explain her vertigo. Started patient on meclizine. Spoke with neurology. Recommended increasing aspirin to full dose aspirin. I've added on meclizine for vertigo. Plan/VTE VTE Prophylaxis Ordered?: Yes Plan 1. Syncope No events on telemetry -Pending echocardiogram results Hold lisinopril, Coreg, and amlodipine 2. 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 LDL is 69 -Spoke with neurology, recommending increasing aspirin to full dose aspirin -Added on meclizine for vertigo 3. Diabetes mellitus Patient not on any diabetic medications HbA1c in 2019 was 6.6. Now 6.1 Diet controlled on carb consistent diet 4. History of ischemic and hemorrhagic CVA Continue aspirin and atorvastatin 5. Glaucoma Convert bimatoprost to latanoprost 6. Alcohol abuse disorder Continue thiamine and folic acid 7. Osteoarthritis of the knees bilaterally Continue scheduled and as needed acetaminophen. Physical therapy ordered 8. DVT prophylaxis SCDs and teds Disposition: Pending clinical improvement in vertigo. Also pending MRI results for new left arm paresthesia VS, I&O, 24H, Fishbone Vital Signs/I&O Vital Signs Date Time Temp Pulse Resp B/P (MAP) Pulse Ox O2 Delivery O2 Flow Rate FiO2 11/09/20 06:20 75 131/56 (81) 86 131/56 (81) 11/09/20 06:20 98.1 18 97 Room Air I&O- Last 24 Hours up to 6 AM 11/09/20 06:00 Intake Total 948 ml Output Total 0 ml Balance 948 ml Laboratory Data 24H LABS Laboratory Tests 2 11/09/20 06:00: Nucleated Red Blood Cells % (auto) 0.0, Anion Gap 5L, Glomerular Filtration Rate > 60.0, Calcium Level 8.5L, Triglycerides Level 135, Total Cholesterol 131, LDL Cholesterol 69, Non-HDL Cholesterol (LDL + VLDL) 96, Total HDL Cholesterol 35L, Cholesterol/HDL Ratio 3.742 CBC/BMP Laboratory Tests 11/09/20 06:00 VIKKI ALEJO DO Nov 09, 2020 13:42
[2020-11-09 14:00] VITALS: BP 152/76
--- NOTE | 2020-11-09 20:15 | REPVR ---
PROCEDURE INFORMATION: Exam: MR Head Without Contrast Exam date and time: 11/09/2020 7:33 PM Age: 84 years old Clinical indication: Numbness / parasthesia; Left; Additional info: Left arm numbness TECHNIQUE: Imaging protocol: MR of the head without contrast. COMPARISON: 1. CT Head without contrast 2020-11-08 21:30 2. MRI-Brain without Contrast 2020-11-07 21:53 FINDINGS: Brain: Small acute right parietal subcortical lacunar infarct. Chronic right occipital infarct. Chronic right parietal infarct. Moderate chronic FLAIR signal hyperintense white matter disease. Couple scattered gradient susceptible foci of hemosiderin. 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 Cerebral ventricles: Normal. No ventriculomegaly. Bones/joints: Unremarkable. Paranasal sinuses: Normal as visualized. No acute sinusitis. Mastoid air cells: Normal as visualized. No mastoid effusion. Orbital cavity: Unremarkable. Soft tissues: Unremarkable. IMPRESSION: 1. Small acute right parietal subcortical lacunar infarct. 2. Chronic right occipital and parietal moderate cortical infarcts. Electronically signed by: Cosme Jones On 11/09/2020 20:14:38 PM
[2020-11-09] MEDS: MEMANTINE 5MG TABLET (NAMENDA) PO SCH (21:18)
[2020-11-09] MEDS: ATORVASTATIN 20 MG TAB PO SCH (21:18)
[2020-11-09] MEDS: LATANOPROST 0.005% OPHTH SOLN 2.5 ML OD SCH (21:18)
[2020-11-09 22:00] VITALS: BP 143/69
[2020-11-10 06:00] VITALS: BP 150/68
[2020-11-10] MEDS: ANALGESIC BALM CRM 3OZ TOP PRN (06:17)
[2020-11-10 06:53] LABS: HEMATOCRIT 34.3 % (36.0-47.0); HEMOGLOBIN 11.1 g/dl (12.0-15.5); MEAN CORPUSCULAR HEMOGLOBIN 30.6 pg (27.0-33.0); MEAN CORPUSCULAR HGB CONC 32.4 g/dl (32.0-36.5); MEAN CORPUSCULAR VOLUME 94.5 fl (80.0-96.0); PLATELET COUNT, AUTOMATED 292 10^3/uL (150-450); RED BLOOD COUNT 3.63 10^6/uL (4.00-5.40); WHITE BLOOD COUNT 10.3 10^3/uL (4.0-10.0)
[2020-11-10 07:18] LABS: BLOOD UREA NITROGEN 15 MG/DL (7-18); CARBON DIOXIDE LEVEL 27 MEQ/L (21-32); CHLORIDE LEVEL 108 MEQ/L (98-107); CREATININE FOR GFR 0.74 MG/DL (0.55-1.30); GLOMERULAR FILTRATION RATE > 60.0 (>32); GLUCOSE, FASTING 92 MG/DL (70-100); POTASSIUM SERUM 4.6 MEQ/L (3.5-5.1); SODIUM LEVEL 140 MEQ/L (136-145)
[2020-11-10 09:30] VITALS: BP_SYST 130; BP_SYST 133; BP_DIAS 62; BP_DIAS 65
[2020-11-10] MEDS: THIAMINE 100 MG TAB PO SCH (09:41)
[2020-11-10] MEDS: ASCORBIC ACID 500 MG TAB PO SCH (09:41)
[2020-11-10] MEDS: ACETAMINOPHEN 650MG ER TAB (TYLENOL ARTHRITIS) PO SCH ×2 (09:41→20:12)
[2020-11-10] MEDS: FOLIC ACID 1 MG TAB PO SCH (09:41)
[2020-11-10] MEDS: ASPIRIN ENTERIC 325 MG TAB PO SCH (09:41)
[2020-11-10] MEDS: MECLIZINE 25 MG TABLET PO SCH ×3 (09:41→20:13)
[2020-11-10] MEDS: DOCUSATE SODIUM 100MG CAPSULE PO SCH (09:41)
--- NOTE | 2020-11-10 12:31 | IPNPDOC ---
Subjective Date Seen The patient was seen on 11/10/20. Subjective Chief Complaint/HPI Mrs. Lewis is an 84-year-old female from [facility] with bilateral knee osteoarthritis, hypertension, CVA, and DM type II who presents with syncope but then found to have acute CVA. This morning, her left arm numbness had resolved and it feels well. Denies chest pain or dyspnea. Still has vertigo with sitting up. Repeat MRI was obtained yesterday. Demonstrated small acute right parietal subcortical lacunar infarct and chronic right occipital and parietal moderate cortical infarcts. Discussed case with neurology. Recommending continuing with full dose aspirin and maintaining permissive hypertension today. Objective Physical Examination General Exam: Positive: Alert, Cooperative Eye Exam: Positive: EOMI; Negative: Sclera icteric ENT Exam: Positive: Atraumatic Neck Exam: Positive: Supple Chest Exam: Positive: Clear to auscultation, Diminished Heart Exam: Positive: Rate Normal, Regular Rhythm Abdomen Exam: Positive: Normal bowel sounds, Soft; Negative: Tenderness Extremity Exam: Negative: Edema Neuro Exam: Positive: Other (Vertigo) Psych Exam: Positive: Mental status NL, Mood NL Assessment /Plan Assessment Mrs. Lewis is an 84-year-old female from [facility] with bilateral knee osteoarthritis, hypertension, CVA, and DM type II who presents with syncope. No events on telemetry. Echocardiogram pending. Patient has not needed antihypertensives, will continue to hold. Otherwise, she has dizziness that is positional. Will order MRI. MRI is positive for CVA. Patient will need 48 hours of permissive hypertension. Otherwise, she had a cerebellar stroke which would explain her vertigo. Started patient on meclizine. Spoke with neurology. Recommended increasing aspirin to full dose aspirin. I've added on meclizine for vertigo. On evening of 11/08/20, patient was complaining of left arm symptoms. CT head demonstrated right parietal lobe encephalomalacia. MRI demonstrated small acute right parietal subcortical lacunar infarct. Left arm symptoms resolved the following day. Recommended the full dose aspirin and maintaining permissive hypertension today. Plan/VTE VTE Prophylaxis Ordered?: Yes Plan 1. Syncope No events on telemetry -Pending echocardiogram results Hold lisinopril, Coreg, and amlodipine 2. 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 LDL is 69 -Spoke with neurology, recommending increasing aspirin to full dose aspirin -Added on meclizine for vertigo -Continue permissive hypertension today 3. Diabetes mellitus Patient not on any diabetic medications HbA1c in 2018 was 6.6. Now 6.1 Diet controlled on carb consistent diet 4. History of ischemic and hemorrhagic CVA Continue aspirin and atorvastatin 5. Glaucoma Convert bimatoprost to latanoprost 6. Alcohol abuse disorder Continue thiamine and folic acid 7. Osteoarthritis of the knees bilaterally Continue scheduled and as needed acetaminophen. Physical therapy ordered 8. DVT prophylaxis SCDs and teds Disposition: Pending clinical improvement in vertigo. VS, I&O, 24H, Fishbone Vital Signs/I&O Vital Signs Date Time Temp Pulse Resp B/P (MAP) Pulse Ox O2 Delivery O2 Flow Rate FiO2 11/10/20 06:00 98.2 77 17 150/68 (95) 98 Room Air I&O- Last 24 Hours up to 6 AM 11/10/20 06:00 Intake Total 1152 ml Balance 1152 ml Laboratory Data 24H LABS Laboratory Tests 2 11/09/20 21:49: Bedside Glucose (Misc Panel) 127H 11/10/20 05:55: Nucleated Red Blood Cells % (auto) 0.0, Anion Gap 5L, Glomerular Filtration Rate > 60.0, Calcium Level 9.0 CBC/BMP Laboratory Tests 11/10/20 05:55 VIKKI ALEJO DO Nov 10, 2020 12:31
[2020-11-10 14:30] VITALS: BP 129/68
--- NOTE | 2020-11-10 18:33 | ECHO ---
ECHOCARDIOGRAM DATE OF PROCEDURE: 11/08/2020 Age: Gender: Female Height: Weight: REFERRING PHYSICIAN: Israel Rain M.D. INDICATION: Acute stroke. BUBBLE STUDY: Image was sinus. Images acquired from four chamber view. At least moderate mitral annular calcification was present. The mitral valve did not appear to be stenotic. Left ventricle appeared normal in size and systolic function. Opacification with saline bubbles of the right atrium and right ventricle was excellent. No right to left intracardiac shunting or intrapulmonary shunting of saline bubbles was observed. CONCLUSIONS: Negative saline bubble study.
[2020-11-10] MEDS: LATANOPROST 0.005% OPHTH SOLN 2.5 ML OD SCH (20:12)
[2020-11-10] MEDS: MEMANTINE 5MG TABLET (NAMENDA) PO SCH (20:12)
[2020-11-10] MEDS: ATORVASTATIN 20 MG TAB PO SCH (20:13)
[2020-11-10 22:00] VITALS: BP 124/77
[2020-11-11] MEDS: ANALGESIC BALM CRM 3OZ TOP PRN ×2 (05:27→22:38)
[2020-11-11 06:00] VITALS: BP 180/90
[2020-11-11 07:07] LABS: HEMATOCRIT 32.7 % (36.0-47.0); HEMOGLOBIN 10.6 g/dl (12.0-15.5); MEAN CORPUSCULAR HEMOGLOBIN 30.5 pg (27.0-33.0); MEAN CORPUSCULAR HGB CONC 32.4 g/dl (32.0-36.5); MEAN CORPUSCULAR VOLUME 94.2 fl (80.0-96.0); PLATELET COUNT, AUTOMATED 287 10^3/uL (150-450); RED BLOOD COUNT 3.47 10^6/uL (4.00-5.40)
[2020-11-11 07:25] LABS: BLOOD UREA NITROGEN 16 MG/DL (7-18); CALCIUM LEVEL 8.5 MG/DL (8.8-10.2); CARBON DIOXIDE LEVEL 26 MEQ/L (21-32); CHLORIDE LEVEL 108 MEQ/L (98-107); CREATININE FOR GFR 0.75 MG/DL (0.55-1.30); GLOMERULAR FILTRATION RATE > 60.0 (>32); GLUCOSE, FASTING 107 MG/DL (70-100); POTASSIUM SERUM 4.3 MEQ/L (3.5-5.1); SODIUM LEVEL 140 MEQ/L (136-145)
[2020-11-11] MEDS: DOCUSATE SODIUM 100MG CAPSULE PO SCH (09:17)
[2020-11-11] MEDS: THIAMINE 100 MG TAB PO SCH (09:17)
[2020-11-11] MEDS: FOLIC ACID 1 MG TAB PO SCH (09:18)
[2020-11-11] MEDS: MECLIZINE 25 MG TABLET PO SCH ×3 (09:18→21:29)
[2020-11-11] MEDS: ASCORBIC ACID 500 MG TAB PO SCH (09:18)
[2020-11-11] MEDS: ASPIRIN ENTERIC 325 MG TAB PO SCH (09:18)
[2020-11-11] MEDS: ACETAMINOPHEN 650MG ER TAB (TYLENOL ARTHRITIS) PO SCH ×2 (09:18→21:29)
[2020-11-11 09:30] VITALS: BP_SYST 124; BP_SYST 125; BP_DIAS 72; BP_DIAS 77
--- NOTE | 2020-11-11 11:17 | IPNPDOC ---
Subjective Date Seen The patient was seen on 11/11/20. Subjective Chief Complaint/HPI Mrs. Lewis is an 84-year-old female from [facility] with bilateral knee osteoarthritis, hypertension, CVA, and DM type II who presents with syncope but then found to have acute CVA. This morning, she tells me that she feels that her dizziness is improving. Still has some dizziness sitting up. Denies chest pain or dyspnea. Objective Physical Examination General Exam: Positive: Alert, Cooperative Eye Exam: Positive: EOMI; Negative: Sclera icteric ENT Exam: Positive: Atraumatic Neck Exam: Positive: Supple Chest Exam: Positive: Clear to auscultation, Diminished Heart Exam: Positive: Rate Normal, Regular Rhythm Abdomen Exam: Positive: Normal bowel sounds, Soft; Negative: Tenderness Extremity Exam: Negative: Edema Neuro Exam: Positive: Other (Vertigo) Psych Exam: Positive: Mental status NL, Mood NL Assessment /Plan Assessment Mrs. Lewis is an 84-year-old female from [facility] with bilateral knee osteoarthritis, hypertension, CVA, and DM type II who presents with syncope. No events on telemetry. Echocardiogram pending. Patient has not needed antihypertensives, will continue to hold. Otherwise, she has dizziness that is positional. Will order MRI. MRI is positive for CVA. Patient will need 48 hours of permissive hypertension. Otherwise, she had a cerebellar stroke which would explain her vertigo. Started patient on meclizine. Spoke with neurology. Recommended increasing aspirin to full dose aspirin. I've added on meclizine for vertigo. On evening of 11/08/20, patient was complaining of left arm symptoms. CT head demonstrated right parietal lobe encephalomalacia. MRI demonstrated small acute right parietal subcortical lacunar infarct. Left arm symptoms resolved the following day. Recommended the full dose aspirin and completing 48 hours of permissive hypertension Will restart lisinopril today. Possible return tomorrow if dizziness continues to improve. Plan/VTE VTE Prophylaxis Ordered?: Yes Plan 1. Syncope No events on telemetry -Pending echocardiogram results Hold Coreg and amlodipine -Will restart Lisinopril today 2. 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 LDL is 69 -Spoke with neurology, recommending increasing aspirin to full dose aspirin -Added on meclizine for vertigo -Patient completed permissive hypertension. Okay to start controlling blood pressure today 3. Diabetes mellitus Patient not on any diabetic medications HbA1c in 2019 was 6.6. Now 6.1 Diet controlled on carb consistent diet 4. History of ischemic and hemorrhagic CVA Continue aspirin and atorvastatin 5. Glaucoma Convert bimatoprost to latanoprost 6. Alcohol abuse disorder Continue thiamine and folic acid 7. Osteoarthritis of the knees bilaterally Continue scheduled and as needed acetaminophen. Physical therapy ordered 8. DVT prophylaxis SCDs and teds Disposition: Pending clinical improvement in vertigo. Possible return to [facility] tomorrow VS, I&O, 24H, [place] Vital Signs/I&O Vital Signs Date Time Temp Pulse Resp B/P (MAP) Pulse Ox O2 Delivery O2 Flow Rate FiO2 11/11/20 09:30 89 124/77 (93) 74 125/72 (89) 11/11/20 06:00 98.3 16 94 Room Air I&O- Last 24 Hours up to 6 AM 11/11/20 06:00 Intake Total 910 ml Balance 910 ml Laboratory Data 24H LABS Laboratory Tests 2 11/11/20 06:32: Nucleated Red Blood Cells % (auto) 0.0, Anion Gap 6L, Glomerular Filtration Rate > 60.0, Calcium Level 8.5L CBC/BMP Laboratory Tests 11/11/20 06:32 Microbiology Microbiology 11/11/20 Stool Occult Blood (DESMOND), Received Pending VIKKI ALEJO DO Nov 11, 2020 11:17
[2020-11-11 11:40] VITALS: BP 134/67
[2020-11-11 14:00] VITALS: BP 132/63
[2020-11-11] MEDS: ATORVASTATIN 20 MG TAB PO SCH (21:29)
[2020-11-11] MEDS: LATANOPROST 0.005% OPHTH SOLN 2.5 ML OD SCH (21:29)
[2020-11-11] MEDS: MEMANTINE 5MG TABLET (NAMENDA) PO SCH (21:29)
[2020-11-11 22:00] VITALS: BP 103/60
[2020-11-12 06:00] VITALS: BP 121/67
[2020-11-12] MEDS: ANALGESIC BALM CRM 3OZ TOP PRN (06:11)
[2020-11-12 06:32] LABS: HEMATOCRIT 32.3 % (36.0-47.0); HEMOGLOBIN 10.5 g/dl (12.0-15.5); MEAN CORPUSCULAR HGB CONC 32.5 g/dl (32.0-36.5); MEAN CORPUSCULAR VOLUME 95.3 fl (80.0-96.0); PLATELET COUNT, AUTOMATED 289 10^3/uL (150-450); RED BLOOD COUNT 3.39 10^6/uL (4.00-5.40); WHITE BLOOD COUNT 9.8 10^3/uL (4.0-10.0)
[2020-11-12 06:57] LABS: BLOOD UREA NITROGEN 15 MG/DL (7-18); CALCIUM LEVEL 8.7 MG/DL (8.8-10.2); CARBON DIOXIDE LEVEL 26 MEQ/L (21-32); CHLORIDE LEVEL 108 MEQ/L (98-107); CREATININE FOR GFR 0.78 MG/DL (0.55-1.30); GLOMERULAR FILTRATION RATE > 60.0 (>32); GLUCOSE, FASTING 89 MG/DL (70-100); POTASSIUM SERUM 4.4 MEQ/L (3.5-5.1); SODIUM LEVEL 139 MEQ/L (136-145)
[2020-11-12] MEDS: ASCORBIC ACID 500 MG TAB PO SCH (08:57)
[2020-11-12] MEDS: ASPIRIN ENTERIC 325 MG TAB PO SCH (08:57)
[2020-11-12] MEDS: THIAMINE 100 MG TAB PO SCH (08:57)
[2020-11-12] MEDS: FOLIC ACID 1 MG TAB PO SCH (08:57)
[2020-11-12] MEDS: ACETAMINOPHEN 650MG ER TAB (TYLENOL ARTHRITIS) PO SCH (08:57)
[2020-11-12] MEDS: DOCUSATE SODIUM 100MG CAPSULE PO SCH (08:57)
[2020-11-12 08:59] VITALS: BP 118/67
[2020-11-12] MEDS: MECLIZINE 25 MG TABLET PO SCH (09:01)
[2020-11-12] MEDS ORDERED: MECL-86 PO (09:20)
[2020-11-12] MEDS ORDERED: ASPI32ECTA PO (09:20)
--- NOTE | 2020-11-12 15:32 | ECHO ---
ECHOCARDIOGRAM DATE OF PROCEDURE: 11/06/2020 Age: 84 Gender: Female Height: 157 cm Weight: 53 kg REFERRING PHYSICIAN: Dr. Israel Rain INDICATION: Syncope MEASUREMENTS: 2D Measurements: LVOT 1.8 cm Intraventricular septum 0.92-1.35 cm Posterior wall 0.9 cm Left ventricle diastole 4.1 cm Aortic root 3.3 cm Left atrium 3.8 cm Left atrial volume index 39.5 Proximal ascending aorta 2.8 cm Doppler Measurements: No aortic stenosis No aortic regurgitation Aortic valve velocity 78.0 cm/sec LVOT velocity 88.0 cm/sec No mitral regurgitation No mitral stenosis Mitral E velocity 93.8 cm/sec Mitral A velocity 147._ cm/sec Mitral deceleration time 271 msec Very mild tricuspid regurgitation Estimated right ventricle systolic pressure 24-29 mmHg No pulmonic regurgitation MITRAL ANNULAR TISSUE DOPPLER: E prime septal 5.1 cm/sec E prime lateral 8.2 cm/sec DESCRIPTION: Rhythm was sinus. This was a moderately technically difficult echocardiogram. No pericardial effusion. This was a 2D, M-mode, color flow Doppler and pulse wave Doppler examination including mitral annular tissue Doppler. CONCLUSIONS: 1. Moderate aortic valve sclerosis of a 3-cusp aortic valve. No aortic stenosis or regurgitation. 2. Moderate mitral annular calcification. No mitral stenosis or regurgitation. 3. Mild focal hypertrophy at the basal anteroseptal LV segment. Normal regional LV wall motion and wall thickening. No dynamic LVOT obstruction. Normal LV systolic function. LVEF 75% by visual estimate. Grade 1 LV diastolic dysfunction. 4. Mild left atrial dilatation versus moderate increased left ventricular volume index. 5. Tricuspid annulus calcification. No tricuspid stenosis. Very mild tricuspid regurgitation, suggestive of normal estimated RV systolic pressure. 6. Moderately technically difficult echocardiogram.
--- NOTE | 2020-11-12 16:16 | DS.PDOC ---
Discharge Summary General Date of Admission Nov 06, 2020 Date of Discharge Nov 12, 2020 Discharge Summary PROCEDURES PERFORMED DURING STAY: None ADMITTING DIAGNOSES: 1. Syncope 2. Insulin resistance 3. History of ischemic and hemorrhagic CVA 4. Glaucoma 5. Alcohol abuse disorder 6. Osteoarthritis of the knees bilateral DISCHARGE DIAGNOSES: 1. Syncope 2. Acute cerebellar CVA and small right parietal CVA 3. Insulin resistance 4. Glaucoma 5. Alcohol abuse disorder 6. Osteoarthritis of the knees bilateral COMPLICATIONS/CHIEF COMPLAINT: Syncope. HISTORY OF PRESENT ILLNESS: Mrs. Lewis is an 84-year-old female from [facility] with bilateral knee osteoarthritis, hypertension, CVA, and DM type II who presents with syncope. About a month ago, patient went to [facility] for physical therapy. She has osteoarthritis of the knees and it has been difficult for her to ambulate. They are working with her on ambulation with a walker. She was feeling good yesterday. Today she was working with the physical therapist, when she sat down on the walker and passed out. Patient did not fall, but collapsed on her walker. In the ED, patient had systolic blood pressures in the 90s. She was orthostatic positive by symptoms, not by numbers. Her blood pressure increased with standing. Patient tells me that she is always had high blood pressure. She is currently on 3 antihypertensives. She denies any recent changes in medications or sick contacts. She denies any fever or chills, changes in vision, chest pain, dyspnea, abdominal pain, diarrhea, dysuria, or changes in appetite. She tells me that she is eating and drinking without issue. She denies any recent changes to her medications. Other than the osteoarthritis of her knees, her only other complaint was diffuse pruritus. Started since living at [facility]. She is had this before in the past, and it resolved with changing detergent. She suspects that it is a detergent that is causing her diffuse pruritus. Patient will be placed in observation for syncope. HOSPITAL COURSE: During hospitalization, syncope work-up was unremarkable. No e vents on telemetry. Patient attempted to stand and felt dizzy. Describes the dizziness as the room was moving. Also reports having difficulty with vision in the left eye. Obtain an MRI which demonstrated acute lacunar infarcts including the right hemicerebellum and several tiny acute lacunar infarcts in the deep and periventricular white matter. Stroke work-up was initiated. Antihypertensives were discontinued to allow for permissive hypertension. CT angio head demonstrated moderate focal stenosis of the mid to distal basilar artery, moderate focal stenosis of the left [employer], and moderate stenosis involving of M1 segment of left. CT angio neck was negative. No events on telemetry. Ec hocardiogram was negative for bubble study. Discussed with neurology, Dr. Bahena. Recommend increasing aspirin from 81mg to 325 mg. A day later, patient complained of left arm numbness/weakness. Repeat MRI was obtained and demonstrates small acute right parietal subcortical lacunar infarct. Discussed with Dr. Bahena. Recommended continuing aspirin 325 mg and maintaining permissive hypertension. Patient was started on IV fluids to help maintain blood pressure. Permissive hypertension ended on 11/11/2020. Okay to resume antihypertensives. Due to patient's blood pressure only restarted lisinopril. She will not be able to tolerate amlodipine or Coreg. Today, patient felt that her vertigo has improved. She felt ready for rehab at [facility]. Patient was discharged to [facility] today. DISCHARGE MEDICATIONS: Please see below. ALLERGIES: Please see below. PHYSICAL EXAMINATION ON DISCHARGE: VITAL SIGNS: Please see below. GENERAL: Comfortable, in no apparent distress. HEENT: Sclera clear. NECK: Supple. RESPIRATORY: Lungs clear to auscultation bilaterally, no rales, wheeze or rhonch i. CARDIOVASCULAR: Regular rate and rhythm. ABDOMEN: Soft, nontender, no guarding or rebound tenderness. Normal bowel sounds. MUSCLE SKELETAL: No pitting edema bilateral. PSYCHOLOGICAL: Normal mood and affect. LABORATORY DATA: Please see below. IMAGING: Radiologist interpretation MRI brain Acute lacunar infarcts including in the right hemicerebellum, and several tiny acute lacunar infarcts in the deep and periventricular white matter. CT angio head 1. 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 2. Moderate focal stenosis at the origin of the left posterior cerebral artery. 3. Moderate focal stenosis involving the mid M1 segment of the left CT angio neck No significant cervical arterial stenosis. CT head for left arm numbness and weakness 1. No acute hemorrhage, mass effect or midline shift. 2. Encephalomalacia in the right parietal lobe. 3. Edema or developing encephalomalacia in the right occipital lobe. 4. Old lacunar infarcts bilaterally. Repeat MRI brain for left arm numbness and weakness 1. Small acute right parietal subcortical lacunar infarct. 2. Chronic right occipital and parietal moderate cortical infarcts. PROGNOSIS: Good ACTIVITY: As tolerated. DIET: Carbohydrate consistent DISCHARGE PLAN: [facility] DISPOSITION: [facility]. DISCHARGE INSTRUCTIONS: 1. Follow-up with your PCP in 1 week. DISCHARGE CONDITION: Stable. Total time spent discharge planning, discharge summary, and medication reconciliation: 45 minutes Vital Signs/I&Os Vital Signs Date Time Temp Pulse Resp B/P (MAP) Pulse Ox O2 Delivery O2 Flow Rate FiO2 11/12/20 08:59 118/67 11/12/20 06:00 98.1 77 17 96 Room Air I&O- Last 24 Hours up to 6 AM 11/12/20 06:00 Intake Total 670 ml Balance 670 ml Laboratory Data Labs 24H Laboratory Tests 2 11/12/20 05:40: Nucleated Red Blood Cells % (auto) 0.0, Anion Gap 5L, Glomerular Filtration Rate > 60.0, Calcium Level 8.7L CBC/BMP Laboratory Tests 11/12/20 05:40 Microbiology Microbiology 11/12/20 Respiratory Virus Panel (PCR) ([facility]) - Final, Complete 11/11/20 Stool Occult Blood ([facility]) - Final, Complete Discharge Medications Scheduled Acetaminophen (Tylenol Arthritis) 650 Mg Tablet.er, 650 MG PO BID, (Reported) Amino Acids/Protein Hydrolys (Liquacel Liquid Protein) 16 Gram-100 Kcal/30 Ml Liquid, 30 ML PO BID, (Reported) Ascorbic Acid (Vitamin C) 500 Mg Tablet, 500 MG PO DAILY, (Reported) Aspirin (Aspirin EC) 325 Mg Tablet.dr, 325 MG PO DAILY Atorvastatin Calcium (Atorvastatin Calcium) 40 Mg Tablet, 40 MG PO QHS, (Reported) Bimatoprost (Lumigan) 0.01% 2.5ML Drops, 1 DROP OD QHS, (Reported) Cyanocobalamin (Vitamin B-12) (Vitamin B-12) 1,000 Mcg Tablet, 1,000 MCG PO DAILY, (Reported) Diclofenac Sodium (Voltaren Arthritis Pain) 1 % Gel..gram., 1 DOSE TOP TID, (Reported) APPLY TO PAINFUL AREAS Docusate Sodium (Colace) 100 Mg Capsule, 100 MG PO DAILY, (Reported) Folic Acid (Folic Acid) 1 Mg Tablet, 1 MG PO DAILY, (Reported) Lisinopril (Lisinopril) 20 Mg Tablet, 20 MG PO DAILY, (Reported) Meclizine HCl (Meclizine HCl) 25 Mg Tablet, 25 MG PO TID Memantine HCl (Memantine HCl) 10 Mg Tablet, 10 MG PO QHS, (Reported) Nut.tx.gluc.intoler,Lac-Fr,Soy (Glucerna Advance) 237 Ml Liquid, 120 ML PO BID, (Reported) Thiamine HCl (Vitamin B-1) 100 Mg Tablet, 100 MG PO DAILY, (Reported) Scheduled PRN Acetaminophen (Tylenol) 325 Mg Tablet, 650 MG PO Q4H PRN for MILD PAIN (PS 1-4), (Reported) Aluminum/Magnesium/Simeth (Mag-Al Plus Suspension) 30 Ml Oral.susp, 30 ML PO Q4H PRN for INDIGESTION, (Reported) Bisacodyl (Dulcolax) 10 Mg Supp.rect, 10 MG WI DAILY PRN for CONSTIPATION, (Reported) Magnesium Hydroxide (Milk of Magnesia) 400 Mg/5 Ml Oral.susp, 30 ML PO DAILY PRN for CONSTIPATION, (Reported) Sodium Phosphate,Hubbard-Dibasic (Enema) 133 Ml Enema, 1 ANITA WI DAILY PRN for CONSTIPATION, (Reported) Allergies Coded Allergies: No Known Allergies (Unverified , 04/04/19) VIKKI ALEJO DO Nov 12, 2020 16:16
== END 2020-11-12 13:10 | DRG 66 ==
LOC: EDBD 09:56 → M ED 09:56 → M MSPAV 09:57 → ENRESERV 13:11 → M ED 13:40 → OBSVTOIN 11-08 07:43
PROVIDERS: ADMIT Internal Medicine; ATTEND Internal Medicine
DX: I63.9 Cerebral infarction, unspecified (principal); F10.10 Alcohol abuse, uncomplicated; M17.0 Bilateral primary osteoarthritis of knee; H40.9 Unspecified glaucoma; E88.81 Metabolic syndrome and other insulin resistance; I10 Essential (primary) hypertension; E11.9 Type 2 diabetes mellitus without complications; Z79.899 Other long term (current) drug therapy; Z79.82 Long term (current) use of aspirin; E78.5 Hyperlipidemia, unspecified; Z87.891 Personal history of nicotine dependence; Z98.41 Cataract extraction status, right eye

== ENCOUNTER → 2020-11-26 | Outpatient (REF) | payer MEDICARE ==
[~2020-11-26] MED LIST changes: +ACET-907 PO; +ACET650T61 PO; +AMLO1TAB24 PO; +ASPI-161 PO; +ASPI32ECTA PO; +B-1100TA2 PO; +BIMA01SOL OD; +C 50TAB PO; +COLA100C5 PO; +CORE6.25 PO; +CYAN100050 PO; +DICL20GE TOP; +DULC10SU2 PR; +ENEMENE PR; +FOLI1TAB11 PO; +LISI20TA33 PO; +MECL-86 PO; +MEMA10TA19 PO; +MILKSUS3 PO; +MYLASSUD PO; +[UNRECOGNIZED DRUG - CODE] PO; +[UNRECOGNIZED DRUG - CODE] PO
[2020-11-26 10:46] LABS: HEMATOCRIT 33.7 % (36.0-47.0); HEMOGLOBIN 10.8 g/dl (12.0-15.5); MEAN CORPUSCULAR VOLUME 96.8 fl (80.0-96.0); PLATELET COUNT, AUTOMATED 340 10^3/uL (150-450); RED BLOOD COUNT 3.48 10^6/uL (4.00-5.40); WHITE BLOOD COUNT 11.6 10^3/uL (4.0-10.0)
[2020-11-26 11:28] LABS: BLOOD UREA NITROGEN 28 MG/DL (7-18); CALCIUM LEVEL 9.1 MG/DL (8.8-10.2); CARBON DIOXIDE LEVEL 24 MEQ/L (21-32); CHLORIDE LEVEL 105 MEQ/L (98-107); CREATININE FOR GFR 0.91 MG/DL (0.55-1.30); GLOMERULAR FILTRATION RATE > 60.0 (>32); GLUCOSE, FASTING 196 MG/DL (70-100); POTASSIUM SERUM 4.4 MEQ/L (3.5-5.1); SODIUM LEVEL 138 MEQ/L (136-145)
== END ==
PROVIDERS: ATTEND Physician Assistant
DX: Z86.73 Personal history of transient ischemic attack (TIA), and cerebral infarction without residual deficits (principal)

== ENCOUNTER → 2020-12-10 | Outpatient (REF) | payer MEDICARE ==
[2020-12-10 10:36] LABS: HEMATOCRIT 34.8 % (36.0-47.0); HEMOGLOBIN 10.9 g/dl (12.0-15.5); MEAN CORPUSCULAR HEMOGLOBIN 30.8 pg (27.0-33.0); MEAN CORPUSCULAR HGB CONC 31.3 g/dl (32.0-36.5); MEAN CORPUSCULAR VOLUME 98.3 fl (80.0-96.0); PLATELET COUNT, AUTOMATED 338 10^3/uL (150-450); RED BLOOD COUNT 3.54 10^6/uL (4.00-5.40); WHITE BLOOD COUNT 11.1 10^3/uL (4.0-10.0)
[2020-12-10 11:13] LABS: CALCIUM LEVEL 8.8 MG/DL (8.8-10.2); CREATININE FOR GFR 1.02 MG/DL (0.55-1.30); GLOMERULAR FILTRATION RATE 54.8 (>32); POTASSIUM SERUM 4.4 MEQ/L (3.5-5.1)
== END ==
PROVIDERS: ATTEND Internal Medicine
DX: Z86.73 Personal history of transient ischemic attack (TIA), and cerebral infarction without residual deficits (principal)

== ENCOUNTER → 2021-02-25 | Outpatient (REF) | payer MEDICARE ==
[2021-02-25 10:49] LABS: HEMATOCRIT 37.8 % (36.0-47.0); HEMOGLOBIN 12.1 g/dl (12.0-15.5); MEAN CORPUSCULAR HEMOGLOBIN 30.8 pg (27.0-33.0); MEAN CORPUSCULAR VOLUME 96.2 fl (80.0-96.0); PLATELET COUNT, AUTOMATED 309 10^3/uL (150-450); RED BLOOD COUNT 3.93 10^6/uL (4.00-5.40)
[2021-02-25 11:13] LABS: BLOOD UREA NITROGEN 36 MG/DL (7-18); CALCIUM LEVEL 9.5 MG/DL (8.8-10.2); CARBON DIOXIDE LEVEL 28 MEQ/L (21-32); CHLORIDE LEVEL 105 MEQ/L (98-107); CREATININE FOR GFR 0.94 MG/DL (0.55-1.30); GLOMERULAR FILTRATION RATE > 60.0 (>32); GLUCOSE, FASTING 158 MG/DL (70-100); POTASSIUM SERUM 4.6 MEQ/L (3.5-5.1); SODIUM LEVEL 138 MEQ/L (136-145)
== END ==
PROVIDERS: ATTEND Internal Medicine
DX: I67.9 Cerebrovascular disease, unspecified (principal)

== ENCOUNTER → 2021-05-08 | Outpatient (REF) | payer MEDICARE ==
[2021-05-08 11:49] LABS: HEMATOCRIT 32.6 % (36.0-47.0); HEMOGLOBIN 10.4 g/dl (12.0-15.5); MEAN CORPUSCULAR HEMOGLOBIN 30.9 pg (27.0-33.0); MEAN CORPUSCULAR HGB CONC 31.9 g/dl (32.0-36.5); MEAN CORPUSCULAR VOLUME 96.7 fl (80.0-96.0); PLATELET COUNT, AUTOMATED 252 10^3/uL (150-450); RED BLOOD COUNT 3.37 10^6/uL (4.00-5.40); WHITE BLOOD COUNT 10.5 10^3/uL (4.0-10.0)
[2021-05-08 13:14] LABS: ALT/SGPT 15 U/L (12-78); BILIRUBIN,DIRECT 0.1 MG/DL (0.0-0.2); BILIRUBIN,TOTAL 0.6 MG/DL (0.2-1.0); NT-PRO BNP 812 PG/ML (<450); TOTAL PROTEIN 6.1 GM/DL (6.4-8.2); VITAMIN B12 LEVEL > 2000 PG/ML (247-911)
== END ==
PROVIDERS: ATTEND Internal Medicine
DX: Z86.73 Personal history of transient ischemic attack (TIA), and cerebral infarction without residual deficits (principal)

== ENCOUNTER → 2021-10-16 | Outpatient (REF) | payer MEDICARE ==
[2021-10-16 12:01] LABS: HEMATOCRIT 34.1 % (36.0-47.0); HEMOGLOBIN 10.9 g/dl (12.0-15.5); MEAN CORPUSCULAR HEMOGLOBIN 30.5 pg (27.0-33.0); MEAN CORPUSCULAR VOLUME 95.5 fl (80.0-96.0); PLATELET COUNT, AUTOMATED 246 10^3/uL (150-450); RED BLOOD COUNT 3.57 10^6/uL (4.00-5.40); WHITE BLOOD COUNT 9.2 10^3/uL (4.0-10.0)
[2021-10-16 18:01] LABS: ALT/SGPT 18 U/L (12-78); BILIRUBIN,DIRECT < 0.1 MG/DL (0.0-0.2); BILIRUBIN,TOTAL 0.2 MG/DL (0.2-1.0); NT-PRO BNP 552 PG/ML (<450); TOTAL PROTEIN 6.2 GM/DL (6.4-8.2)
[2021-10-16 18:52] LABS: VITAMIN B12 LEVEL 1774 PG/ML (247-911)
== END ==
PROVIDERS: ATTEND Internal Medicine
DX: I63.9 Cerebral infarction, unspecified (principal); Z79.899 Other long term (current) drug therapy